=== PATIENT | female | born 1945 | race Caucasian/White ===

== ENCOUNTER 2018-02-07 08:54 | Outpatient (CLI) | payer MEDICARE, BC, SELFPAY ==
[2018-02-07 09:05] VITALS: BMI 21.1
[2018-02-07 09:38] LABS: Albumin Level 3.5 gm/dL (3.4-5.0); Creatinine Clearance Estimated 39 mL/min (0-300); Creatinine,Serum 0.69 mg/dL (0.55-1.02); Estimated Glomerular Filt Rate 83 ml/min (>60); GFR (African American) 100 ML/MIN (>60)
[2018-02-07 10:00] VITALS: BP 126/50; PULSE 69; RESP 18; TEMP 36.6
[2018-02-07 10:25] VITALS: BP 119/65; PULSE 66; RESP 18
== END 2018-02-07 10:25 | disposition home or self-care (01) ==
LOC: INF 08:57
PROVIDERS: PCP Family Medicine; Visit Provider Family Medicine
DX: M81.0 Age-related osteoporosis without current pathological fracture (principal)
CPT/HCPCS: 82040; 82310; 82565; J3489

== ENCOUNTER → 2018-11-16 12:51 | Outpatient (CLI) | payer MEDICARE, BC, SELFPAY ==
--- NOTE | 2018-11-16 12:55 | CT_ITS ---
CT lung screening EXAM: CT LUNG LOW DOSE WO CONTRAST HISTORY: 35 pack-year smoking history asymptomatic for lung cancer ITS.REASON: NICOTINE DEPENDENCE ORDERING PHYSICIAN: Des Carreno MD PATIENT AGE: 73 years COMPARISON: None TECHNIQUE: The exam was performed on a GE Light Speed [address] scanner using 2.90 mGy CTDI. A low dose helical CT CHEST was performed on a multi-detector scanner. All CT scans at the facility use one or more dose reduction, viz: automated exposure control, ma/kV adjustment per patient size (including targeted exams where dose is matched to indication, i.e. head), or iterative reconstruction technique. The LDCT was performed in a facility that meets the criteria for the screening program. Data regarding this exam was submitted to ACR which is an approved registry. The order for this exam indicates that it came as a result of a lung cancer screening counseling shard decision-making visit that included all the elements required of such a visit including smoking cessation. The radiologist interpreting this exam meets the CMS criteria for the LDCT lung cancer screening program. The exam is reported using the Lung-RADS classification scale and reported to the ACR registry. NOTE: This study was performed for the specific purposes of lung cancer screening and is not an alternative to diagnostic chest CT. RADIATION DOSE: CTDI vol(CT dose Index-volume) = 2.90mG DLP (Dose Length Product) = 100.81 mGcm FINDINGS: There is severe thoracic kyphosis with increased AP dimension of the chest moderate-sized hiatal hernia. Changes of COPD with scattered fibrotic areas. Scattered parenchymal opacities are present including a 14 mm density within the lingula which may be due to an area of scarring, noncalcified 6 mm nodule in the right lung base in the CP angle medially, scattered parenchymal opacities in the left lower lobe infiltrate due to atelectasis or scarring.. There is a 3.5 x 1.3 cm parenchymal opacity in the left lower lobe medially which may be due to an area of scarring is well. IMPRESSION: 1. Lung RADS Category: 4, mildly suspicious regarding scattered parenchymal opacities which may only be due to parenchymal scarring. No previous exams available for comparison. 2. Other findings: COPD, severe kyphosis, hiatal hernia RECOMMENDATIONS: [address] without and with contrast
== END ==
PROVIDERS: PCP Family Medicine; Visit Provider Family Medicine
DX: Z12.2 Encounter for screening for malignant neoplasm of respiratory organs (principal); Z87.891 Personal history of nicotine dependence

== ENCOUNTER 2019-02-12 09:15 | Outpatient (CLI) | payer MEDICARE, BC, SELFPAY ==
[2019-02-12 09:17] VITALS: BMI 21.3
[2019-02-12 09:42] LABS: Basophils # 0.1 K/mm3 (0-0.2); Basophils % 1.2 % (0.1-2.0); Eosinophils # 0.1 K/mm3 (0.0-0.4); Eosinophils % 2.1 % (0.1-12.0); Hematocrit 44.7 % (37.0-47.0); Hemoglobin 14.1 g/dL (12.2-16.2); Lymphocytes # 2.6 K/mm3 (0.7-4.5); Lymphocytes % 47.3 % (10-50); Mean Corpuscular HGB Conc 31.6 g/dL (31.8-35.4); Mean Corpuscular Hemoglobin 28.5 pg (27.0-31.2); Mean Corpuscular Volume 90.3 fl (81-99); Mean Platelet Volume 8.7 fl (7.4-10.4); Monocytes # 0.3 K/mm3 (0.1-1.0); Monocytes % 5.1 % (1.7-9.3); Neutrophils # 2.4 K/mm3 (1.8-7.8); Neutrophils % 44.3 % (37.0-80.0); Platelet Count 445 K/mm3 (142-424); Red Blood Count 4.95 M/mm3 (4.20-5.40); Red Cell Distribution Width 13.5 % (11.5-17.5); White Blood Count 5.4 K/mm3 (4.8-10.8)
[2019-02-12 09:51] LABS: Alanine Aminotransferase 18 U/L (12-78); Albumin Level 3.6 gm/dL (3.4-5.0); Albumin/Globulin Ratio 0.9 (1.1-1.8); Alkaline Phosphatase 69 U/L (46-116); Anion Gap 11.1 mEq/L (5-15); Aspartate Amino Transferase 13 U/L (15-37); Bilirubin,Total 0.4 mg/dL (0.2-1.0); Blood Urea Nitrogen 13 mg/dL (7-18); Calcium 9.3 mg/dL (8.5-10.1); Carbon Dioxide 30 mmol/L (21.0-32.0); Chloride 102 mmol/L (98-107); Chol/HDL Ratio 2.5 (1-3.5); Cholesterol 232 mg/dL (140-200); Creatinine Clearance Estimated 39 mL/min (50-200); Creatinine,Serum 0.86 mg/dL (0.55-1.02); Estimated Glomerular Filt Rate 64 ml/min (>60); GFR (African American) 78 ML/MIN (>60); Globulin 4.1 gm/dl (1.3-3.2); Glucose 96 mg/dL (74-106); HDL Cholesterol 94 mg/dL (29-89); Iron 84 ug/dl (28-170); LDL Cholesterol 123 mg/dL (0-130); Potassium 4.1 mmoL/L (3.5-5.1); Sodium 139 mmol/L (136-145); Total Protein,Serum 7.7 gm/dL (6.4-8.2); Triglycerides 77 mg/dL (30-200); VLDL Cholesterol 15 mg/dL (0-40)
[2019-02-12 10:56] VITALS: BP 144/71; PULSE 65; RESP 18; O2SAT 99
[2019-02-13 17:51] LABS: Vitamin D 25 Hydroxy 20.4 ng/mL (30.0-100.0)
== END 2019-02-12 10:56 | disposition home or self-care (01) ==
LOC: INF 09:17
PROVIDERS: Visit Provider Family Medicine
DX: D50.9 Iron deficiency anemia, unspecified (principal); E78.5 Hyperlipidemia, unspecified; M81.0 Age-related osteoporosis without current pathological fracture; E55.9 Vitamin D deficiency, unspecified; I10 Essential (primary) hypertension
CPT/HCPCS: 80053; 80061; 82652; 83540; 85025; 96374; J3489

== ENCOUNTER → 2019-04-02 10:19 | Outpatient (CLI) | payer MEDICARE, BC, SELFPAY ==
--- NOTE | 2019-04-02 10:59 | CT_ITS ---
PROCEDURE: CT CHEST WO/W CON CLINCAL INDICATION: ABNORMAL CT Tobacco use, history of smoking, COPD COMPARISON: [employer] CT lung screening from 11/16/2018 TECHNIQUE: IV Contrast: 75ml Optiray 350 Axial images obtained with sagittal and coronal reformats. All CT scans at the facility use one or more dose reduction, viz: automated exposure control, ma/kV adjustment per patient size (including targeted exams where dose is matched to indication, i.e. head), or iterative reconstruction technique. FINDINGS: There is severe kyphosis with hyperinflation with significant increased AP dimension of the chest. No mediastinal or hilar mass is evident. There is a moderate-sized hiatal hernia. There are scattered parenchymal and subpleural nodular opacities as previously described. Patchy area of infiltrate is present in the left upper lobe anteriorly not readily apparent on the previous study. There is mild diffuse bronchial thickening. Pulmonary fibrotic changes are present in the lung bases left more extensive than right with bronchiectasis in the left lower lobe.. There remains irregular opacification in the left lung base and may be related to scarring. This is not significantly changed. Neoplasm is not totally excluded. There is some volume loss in the left lower lobe is well. There is some increased septal thickening in the left lower lobe anteriorly compared to the previous exam. IMPRESSION: 1. Severe COPD with pulmonary fibrotic changes and scattered areas of scarring. Numerous sub pleural and parenchymal opacities are not significantly changed suggesting inflammatory/infectious etiology 2. There is some increase in septal thickening in the left lung base anteriorly with a patchy area of infiltrate in the left upper lobe 3. Scattered areas of irregular parenchymal opacification in the left lung base similar to the previous exam and may be related to postinflammatory/fibrotic change. Neoplasm is not completely excluded. Follow-up is suggested. Honeycombing is present in the left lung base with some increase in septal thickening in the left lower lobe anteriorly. Dictated by: Julian Ortega MD 04/03/2019 07:13 Signed by: <Electronically signed by Julian Ortega MD in [place]> 04/03/2019 07:13
[2019-04-02 11:07] LABS: Blood Urea Nitrogen 8 mg/dL (7-18); Creatinine,Serum 0.71 mg/dL (0.55-1.02); Estimated Glomerular Filt Rate 80 ml/min (>60); GFR (African American) 97 ML/MIN (>60)
== END ==
PROVIDERS: PCP Family Medicine; Visit Provider Family Medicine
DX: I10 Essential (primary) hypertension (principal); R91.8 Other nonspecific abnormal finding of lung field
CPT/HCPCS: 36415; 71270; 82565; 84520; Q9967

== ENCOUNTER → 2022-10-17 13:48 | Outpatient (CLI) | payer MEDICARE, BC, SELFPAY ==
--- NOTE | 2022-10-17 13:55 | XR_ITS ---
FINAL REPORT CLINICAL HISTORY: COPD FINDINGS: Two views of the chest were obtained. The heart size and pulmonary vascularity are within normal limits. The mediastinum is normal. There are mild bibasilar opacities which may represent atelectasis or scarring. There is no pneumothorax. There is diffuse thoracic kyphosis. IMPRESSION: Mild bibasilar opacities may represent atelectasis or scarring. Reviewed, Interpreted and Dictated by Vince Myers III, MD Transcribed by Nasima Mroris Authenticated and [facility]
== END ==
PROVIDERS: PCP Family Medicine; Visit Provider Family Medicine
DX: J44.1 Chronic obstructive pulmonary disease with (acute) exacerbation (principal)
CPT/HCPCS: 71046

== ENCOUNTER → 2022-10-25 23:00 | Outpatient (CLI) | payer MEDICARE, BC, SELFPAY ==
[2022-10-25 18:32] LABS: Basophils # 0.1 K/mm3 (0-0.2); Basophils % 1.2 % (0.1-2.0); Eosinophils # 0.2 K/mm3 (0.0-0.4); Eosinophils % 2.1 % (0.1-12.0); Hematocrit 39.6 % (37.0-47.0); Hemoglobin 11.8 g/dL (12.2-16.2); Lymphocytes # 2.6 K/mm3 (0.7-4.5); Lymphocytes % 31.8 % (10-50); Mean Corpuscular HGB Conc 29.9 g/dL (31.8-35.4); Mean Corpuscular Hemoglobin 24.9 pg (27.0-31.2); Mean Corpuscular Volume 83.3 fl (81-99); Mean Platelet Volume 8.3 fl (7.4-10.4); Monocytes # 0.5 K/mm3 (0.1-1.0); Monocytes % 6.5 % (1.7-9.3); Neutrophils # 4.7 K/mm3 (1.8-7.8); Neutrophils % 58.4 % (37.0-80.0); Platelet Count 510 K/mm3 (142-424); Red Blood Count 4.75 M/mm3 (4.20-5.40); Red Cell Distribution Width 15.7 % (11.5-17.5); White Blood Count 8.1 K/mm3 (4.8-10.8)
[2022-10-25 18:39] LABS: Alanine Aminotransferase 12 U/L (12-78); Albumin Level 3.8 g/dl (3.5-5.0); Albumin/Globulin Ratio 1.4 (1.1-1.8); Alkaline Phosphatase 68 U/L (38-126); Anion Gap 5.7 mEq/L (5-15); Aspartate Amino Transferase 23 U/L (14-36); Bilirubin,Total 0.4 mg/dl (0.2-1.3); Blood Urea Nitrogen 15 mg/dl (7-17); Carbon Dioxide 32 mmol/L (22.0-30.0); Chloride 100 mmol/L (98-107); Estimated Glomerular Filt Rate 81 ml/min (>60); GFR (African American) 98 ML/MIN (>60); Globulin 2.7 g/dL (1.3-3.2); Glucose 76 mg/dl (74-100); Potassium 4.7 mmoL/L (3.5-5.1); Sodium 133 mmol/L (136-145); Total Protein,Serum 6.5 g/dl (6.3-8.2)
[2022-10-25 19:11] LABS: Thyroid Stimulating Hormone 0.98 uIU/mL (0.465-4.68)
[2022-10-25 19:30] LABS: Vitamin B12 812 pg/mL (239-931)
== END ==
PROVIDERS: PCP Family Medicine; Visit Provider Family Medicine
DX: R93.89 Abnormal findings on diagnostic imaging of other specified body structures (principal); J44.1 Chronic obstructive pulmonary disease with (acute) exacerbation
CPT/HCPCS: 80053; 82607; 84443; 85025

== ENCOUNTER → 2023-03-21 23:23 | Outpatient (CLI) | payer MEDICARE, BC, SELFPAY ==
[2023-03-21 20:00] LABS: Anion Gap 13.9 mEq/L (5-15); Blood Urea Nitrogen 21 mg/dl (7-17); Calcium 9.5 mg/dl (8.4-10.2); Carbon Dioxide 29 mmol/L (22.0-30.0); Chloride 103 mmol/L (98-107); Estimated Glomerular Filt Rate 43 ml/min (>60); GFR (African American) 52 ML/MIN (>60); Glucose 72 mg/dl (74-100); Potassium 4.9 mmoL/L (3.5-5.1); Sodium 141 mmol/L (136-145)
== END ==
PROVIDERS: PCP Family Medicine; Visit Provider Family Medicine
DX: E87.1 Hypo-osmolality and hyponatremia (principal); J43.9 Emphysema, unspecified
CPT/HCPCS: 80048

== ENCOUNTER 2024-02-19 16:20 | Outpatient (CLI) | payer MEDICARE, BC, SELFPAY ==
--- NOTE | 2024-02-19 16:26 | XR_ITS ---
PROCEDURE INFORMATION: Exam: XR Chest Exam date and time: 02/19/2024 4:30 PM Age: 79 years old Clinical indication: Cough and shortness of breath and other: Copd; Additional info: Cough, copd TECHNIQUE: Imaging protocol: Radiologic exam of the chest. Views: 2 views. COMPARISON: CR XR CHEST 2V 10/17/2022 2:03 PM FINDINGS: Lungs: Lungs are hyperinflated and have bibasilar scarring that is unchanged. No acute airspace consolidation or nodules. Pleural spaces: No pleural effusion. No pneumothorax. Heart/Mediastinum: No abnormalities. No cardiomegaly. No pulmonary vascular congestion. Bones/joints: Hyperkyphosis at pectus carinatum the. Mild compression fractures of T11 and L1 are unchanged. IMPRESSION: 1. No acute findings in the chest. No deleterious interval changes. 2. Hyperinflation. 3. Pectus carinatum and hyperkyphosis.
== END 2024-02-19 23:59 | disposition home or self-care (01) ==
LOC: RAD 16:22
PROVIDERS: PCP Family Medicine; Visit Provider Family Medicine
DX: J44.9 Chronic obstructive pulmonary disease, unspecified (principal); R05.9 Cough, unspecified; Z72.0 Tobacco use
CPT/HCPCS: 71046

== ENCOUNTER 2024-04-16 12:37 | Outpatient (CLI) | payer MEDICARE, BC, SELFPAY ==
--- NOTE | 2024-04-16 12:38 | CT_ITS ---
FINAL REPORT CLINICAL HISTORY: COPD, hx abnormal chest CT, cough COMPARISON: 04/02/2019 FINDINGS: Axial CT images of the chest were obtained with contrast. Coronal reformatted images were also obtained. This study was performed with techniques to keep radiation doses as low as reasonably achievable, (ALARA). Individualized dose reduction techniques using automated exposure control or adjustment of mA and/or KV according to the patient's size were employed. Motion obscures the lung bases. There is a stable 6 mm left thyroid lobe nodule and a stable 19 mm right thyroid lobe nodule. A large hiatal hernia is stable. There is no evidence of mediastinal or hilar mass or adenopathy.No axillary mass or adenopathy is identified. On lung window images, no pulmonary mass or dominant pulmonary nodule is identified. Mild pulmonary ground-glass opacities are consistent with edema or alveolitis. There is left lower lobe bronchiectasis and mucous plugging. Multifocal opacities are noted in the right middle lobe. Lingula, and both lower lobes favored to represent scarring. The overall appearance is similar to the prior study. Severe thoracic kyphosis is noted. Limited images of the upper abdomen reveal a small left renal cyst. There is a 3 mm nonobstructing left renal stone. IMPRESSION: Left lower lobe bronchiectasis and mucous plugging. Multifocal opacities favored to represent scarring as described are stable from prior. Findings consistent with edema or alveolitis. 3 mm nonobstructing left renal stone. Stable bilateral thyroid nodules. Reviewed, Interpreted and Dictated by Vince Myers III, MD Transcribed by Myra Can Authenticated and [facility]
[2024-04-16 13:34] LABS: Blood Urea Nitrogen 17 mg/dl (7-17); Estimated Glomerular Filt Rate 80 ml/min (>60); GFR (African American) 97 ML/MIN (>60)
[2024-04-16] MEDS: IOPAMIDOL-370 (76%);100ML BOTTLE 75 ML IV (14:16)
[2024-04-16] MEDS: SODIUM CHLORIDE 0.9% 10ML SYR (RAD ONLY) 10 ML IV (14:16)
== END 2024-04-16 23:59 | disposition home or self-care (01) ==
LOC: RAD 12:37
PROVIDERS: PCP Nurse Practitioner; Visit Provider Nurse Practitioner
DX: J44.1 Chronic obstructive pulmonary disease with (acute) exacerbation (principal); R93.89 Abnormal findings on diagnostic imaging of other specified body structures; R05.9 Cough, unspecified; R53.83 Other fatigue
CPT/HCPCS: 36415; 71260; 82565; 84520; Q9967

== ENCOUNTER 2024-09-18 12:14 | Outpatient (CLI) | payer MEDICARE, BC, SELFPAY ==
--- NOTE | 2024-09-18 13:22 | PC.NURSE ---
Pt present for PFT and 6 Minute Walk Test. 6 Minute Walk Test completed without incident. PFT attempted Pt unable to understand and not able to follow directions in order to complete breathing maneuvers.
== END 2024-09-18 23:59 | disposition home or self-care (01) ==
LOC: RT 12:17
PROVIDERS: PCP Nurse Practitioner; Visit Provider Internal Medicine Pulmonary Disease
DX: R06.09 Other forms of dyspnea (principal); J47.9 Bronchiectasis, uncomplicated; J15.69 Pneumonia due to other Gram-negative bacteria; B96.89 Other specified bacterial agents as the cause of diseases classified elsewhere
CPT/HCPCS: 87070; 87077; 87186; 87205; 94618

== ENCOUNTER 2024-11-06 15:55 | Inpatient (IN) | payer MEDICARE, BC, SELFPAY ==
[2024-11-06] VITALS (10 sets, daily range): BP systolic 104–178; BP diastolic 66–95; PULSE 74–96; RESP 18–75; TEMP 36.6–36.9; O2SAT 86–100; BMI 19.7; BMI 20.1
--- NOTE | 2024-11-06 15:54 | ED_ITS ---
<Statement entered by Hudson Mera MD - 11/06/24 21:52> I was consulted by the IDALIA, and we discussed the complexity of the problems being addressed. I approved the treatment and management plan for this patient's care in the emergency department, thus performing a substantive portion of the medical decision making. Hudson Mera MD Discharge Plan Disposition Patient Disposition: Admitted Condition: Good Clinical Impressions Clinical Impression: Acute and chronic respiratory failure with hypoxia, Pelvic hematoma in female Fracture of multiple pubic rami Qualifiers: Encounter type: initial encounter Fracture type: closed Laterality: right Q ualified Code(s): S32.591A - Other specified fracture of right pubis, initial encounter for closed fracture Closed sacral fracture Qualifiers: Encounter type: initial encounter Zone of sacrum fracture: unspecified portion of sacrum Qualified Code(s): S32.10XA - Unspecified fracture of sacrum, initial encounter for closed fracture Discharge ED Provider: Hudson Mera General Adult HPI General Chief complaint: Fall Stated complaint: RIGHT HIP PAIN Time Seen by Provider: 11/06/24 16:00 History of Present Illness HPI narrative: Presents for evaluation of a fall. Patient was walking through her house tripped on a toolbox on her floor and fell on the right side of her body. She was unable to get up due to the pain. She did not lose consciousness. Patient also has a history of COPD not on chronic oxygen and reports that she is being treated for bronchitis currently. Patient denies chest pain shortness of breath fever chills hemoptysis hematochezia melena nausea vomit diarrhea. She denies headache change in level of consciousness or awareness focal neurologic deficits. Related Data Home Medications ?Medication ?Instructions ?Recorded ?Confirmed acetaminophen 325 mg tablet 650 mg PO NEEDED PRN pain 02/07/18 11/06/24 (Tylenol) cholecalciferol (vitamin D3) 75 25 mcg PO DAILY 06/27/24 11/06/24 mcg (3,000 unit) tablet aspirin 81 mg chewable tablet 81 mg PO DAILY 11/06/24 11/06/24 benazepril 5 mg tablet 2.5 mg PO DAILY 11/06/24 11/06/24 rabeprazole 20 mg tablet,delayed 20 mg PO DAILY 11/06/24 11/06/24 release Previous Rx's ?Medication ?Instructions ?Recorded diphenhydramine HCl 25 mg tablet 25 mg PO BID #180 tabs 09/12/24 (Benadryl Allergy) albuterol sulfate 90 mcg/actuation 2 inh inhalation Q4-6H PRN 09/17/24 aerosol inhaler (Ventolin HFA) Shortness Of Breath Or Wheezing #8.5 grams fluticasone propionate 50 1 spray intranasal DAILY allergies 09/17/24 mcg/actuation nasal #48 grams spray,suspension (Flonase Allergy Relief) glycopyrrolate 9 mcg-formoterol 2 puff inhalation BID 90 days 09/18/24 4.8 mcg HFA aerosol inhaler #10.7 grams (Bevespi Aerosphere) Allergies Allergy/AdvReac Type Severity Reaction Status Date / Time No Known Allergies Allergy Verified 09/18/24 13:58 [facility] Disclaimer: The information contained in this section may have been updated after the patient was seen, as this information can be updated by other users. Medical History Chronic cough Bronchiectasis Smoking greater than 30 pack years Mucus plug in respiratory tract Fatigue Cough Allergic rhinitis Encounter for immunization Renal insufficiency, mild Periorbital ecchymosis of left eye COPD (chronic obstructive pulmonary disease) with chronic bronchitis Emphysema of lung Hyponatremia Abnormal CT scan, chest COPD with exacerbation Heart attack History of cataract GERD (gastroesophageal reflux disease) Hypertension Surgical History History of cataract surgery History of tonsillectomy Family History Other Cancer Diabetes Heart attack Hypertension Stroke Social History (Updated 11/06/24 @ 20:17 by Luana Choudhury RN) Smoking Status: Current every day smoker alcohol intake: current current occupational status: retired Travel in the last 8 weeks: Inside the [place] Have you lived/traveled outside [place] in past 30 days?: No Contact w/someone who lives/traveled outside US past 30 days?: No Exposure to someone with infectious disease in past 14 days?: No Do you have a fever (greater than 100.4 F or 38 C)?: No Have you tested positive for COVID-19: No Exposed to someone with COVID-19 in past 14 days?: No Do you have a sore throat?: No Do you have a cough?: No Do you have any weakness?: No Do you have any diarrhea?: No Are you experiencing any unusual bleeding?: No Do you have any muscle aches/pain?: No Do you have any abdominal pain?: No Are you experiencing loss of taste or smell?: No Other Medical History Have you received the Pneumonia Vaccine: Yes ROS Obtained: Yes Systems reviewed as appropriate & no additional complaints except as documented Physical Exam General General appearance: alert and in no apparent distress Respiratory Respiratory exam: Present normal lung sounds bilaterally Cardiovascular Cardiovascular exam: Present regular rate Neurological Exam Neurological exam: Present alert and oriented X3 Medical Decision Making Medical Records Medical records reviewed: Yes I reviewed the patient's medical records. Screening: Per USPSTF and CDC recommendations, given the prevalence of disease in our region, it is our hospital?s policy to screen for HIV and viral Hepatitis for all patients aged 18 and over and those with ongoing risk factors. Benny Inquiry Pt receiving controlled substance: No Vital Signs: 11/06/24 16:02 11/06/24 16:06 11/06/24 16:38 Temperature 98.5 F Temperature Source Oral Pulse Rate 74 Pulse Rate [Left Radial] 82 Respiratory Rate 18 18 21 Blood Pressure 104/83 L 118/68 Blood Pressure [Right Arm] 104/83 L Blood Pressure Mean [Right Arm] 90 02 Sat by Pulse Oximetry 95 86 L 96 Oxygen Delivery Method Nasal Cannula Room Air Nasal Cannula Oxygen Flow Rate (LPM) 11/06/24 17:01 11/06/24 17:30 11/06/24 18:00 Temperature Temperature Source Pulse Rate 81 76 86 Pulse Rate [Left Radial] Respiratory Rate 19 39 H 32 H Blood Pressure 178/87 H 177/95 H 176/88 H Blood Pressure [Right Arm] Blood Pressure Mean [Right Arm] 02 Sat by Pulse Oximetry 95 93 L 100 Oxygen Delivery Method Nasal Cannula Nasal Cannula Nasal Cannula Oxygen Flow Rate (LPM) 11/06/24 18:01 11/06/24 19:00 Temperature 98.5 F Temperature Source Pulse Rate 80 96 H Pulse Rate [Left Radial] Respiratory Rate 24 21 Blood Pressure 170/80 H 146/70 H Blood Pressure [Right Arm] Blood Pressure Mean [Right Arm] 02 Sat by Pulse Oximetry 94 L Oxygen Delivery Method Nasal Cannula Oxygen Flow Rate (LPM) 2 Lab Data Lab results reviewed: Yes I reviewed the patient's lab results. Lab Results 11/06/24 16:00: SARS-CoV-2 (PCR) Not detected, Influenza A Untype (PCR) Not detected, Influenza Type B (PCR) Not detected 11/06/24 16:08: WBC 15.9 H, RBC 4.32, Hgb 11.9 L, Hct 37.6, MCV 87.0, MCH 27.5, MCHC 31.6 L, RDW 15.6, Plt Count 336, MPV 10.1, Neut % (Auto) 80.9 H, Lymph % (Auto) 12.8, [place] % (Auto) 4.3, Eos % (Auto) 0.7, Baso % (Auto) 0.5, Neut # (Auto) 12.9 H, Lymph # (Auto) 2.0, [place] # (Auto) 0.7, Eos # (Auto) 0.1, Baso # (Auto) 0.1, Total Counted 100, Neutrophils % (Manual) 79 H, Lymphocytes % (Manual) 14, Monocytes % (Manual) 7, Platelet Estimate Normal, RBC Morphology Normal, Sodium 140, Potassium 3.8, Chloride 105, Carbon Dioxide 31 H, Anion Gap 7.8, BUN 18 H, Creatinine 0.80, Estimated Creat Clear 34, Estimated GFR 69, Est GFR ( Amer) 83, Glucose 95, Calcium 9.4, Total Bilirubin 0.4, AST 32, ALT 20, Alkaline Phosphatase 83, Total Protein 6.8, Albumin 3.9, Globulin 2.9, Albumin/Globulin Ratio 1.3 11/06/24 16:50: VBG pH 7.33, VBG pCO2 54.1 H, VBG pO2 39.1, VBG HCO3 27.6, VBG Total CO2 29.3 H, VBG O2 Saturation 71.0 H, VBG Base Excess 1.6, VBG Lactic Acid 1.1 11/06/24 16:08 11/06/24 16:08 Orders (Tests/Meds): ED MEDICATIONS Generic Name Dose Route Start Last Admin Trade Name Freq PRN Reason Stop Dose Admin Acetaminophen 650 mg 11/06/24 19:20 Acetaminophen 325mg Tab PO 12/06/24 19:19 Q4HP PRN Fever or Mild Pain (1-3) Hydrocodone Bitart/Acetaminophen 1 tab 11/06/24 19:20 Hydrocodone/Apap 5/325 Mg Tablet PO 12/06/24 19:19 Q4HP PRN Mild to Moderate Pain (1-6) Albuterol/Ipratropium 3 ml 11/06/24 20:23 Ipratropium/Albuterol 3 Ml Neb 12/06/24 20:22 Q6HP PRN Shortness Of Breath Enoxaparin Sodium 40 mg 11/07/24 09:00 Enoxaparin 40mg/0.4ml Syringe SUBCUT 12/07/24 08:59 DAILY TY Morphine Sulfate 2 mg 11/06/24 19:20 Morphine 2mg/Ml Syringe IV 12/06/24 19:19 Q2HP PRN Severe Pain (7-10) Ondansetron HCl 4 mg 11/06/24 19:20 Ondansetron 4mg/2ml Vial IV 12/06/24 19:19 Q8HP PRN Nausea Discontinued Medications Generic Name Dose Route Start Last Admin Trade Name Freq PRN Reason Stop Dose Admin Acetaminophen 1,000 mg 11/06/24 16:00 11/06/24 16:31 Acetaminophen 500mg Tab PO 11/06/24 16:01 1,000 mg ONCE ONE Administration Albuterol/Ipratropium 9 ml 11/06/24 17:09 11/06/24 17:22 Ipratropium/Albuterol 3 Ml [facility] 11/06/24 17:10 9 ml ONCE ONE Administration Doxycycline Hyclate 100 mg 11/06/24 17:10 11/06/24 17:22 Doxycycline Hycl 100 Mg Tablet PO 11/06/24 17:11 100 mg ONCE ONE Administration Iopamidol 80 ml 11/06/24 18:15 11/06/24 18:17 Iopamidol-370 (76%);100ml Bottle IV 11/06/24 18:16 80 ml ONCE ONE Administration Methylprednisolone Sodium Succinate 125 mg 11/06/24 17:04 11/06/24 17:22 Methylprednisolone Sod Succ 125mg Vial IV 11/06/24 17:05 125 mg ONCE ONE Administration Sodium Chloride 3 ml 11/06/24 16:50 11/06/24 20:56 Sodium Chloride 3% 15ml [facility] 12/06/24 16:49 3 ml ONCE PRN Administration [employer] Sodium Chloride 50 ml 11/06/24 18:15 11/06/24 18:16 0.9 % Sodium Chloride 50 Ml Vial IV 11/06/24 18:16 50 ml ONCE ONE Administration Sodium Chloride 10 ml 11/06/24 18:15 11/06/24 18:16 Sodium Chloride 0.9% 10ml Syr (Rad Only) IV 11/06/24 18:16 10 ml ONCE ONE Administration ORDERS Category Date Time Status CT bony pelvis Stat Cat Scan 11/06/24 16:[address] cervical spine wo con Stat Cat Scan 11/06/24 16:[address] head/brain wo con Stat Cat Scan 11/06/24 16:[address] lumbar spine wo con Stat Cat Scan 11/06/24 16:[address] thoracic spine wo con Stat Cat Scan 11/06/24 16:01 Completed CXR --portable [XR chest portable] Stat Exams 11/06/24 16:15 Completed Femur XR right 2 views [XR femur RT 2V] Stat Exams 11/06/24 16:00 Completed Knee XR right 3 views [XR knee RT 3V] Stat Exams 11/06/24 16:00 Completed CBC w/Auto Diff [Complete Blood Count Auto Diff] Stat Lab 11/06/24 16:08 Completed CMP [Comprehensive Metabolic Panel] Stat Lab 11/06/24 16:08 Completed Rapid PCR Covid and Flu A/B Stat Lab 11/06/24 16:00 Completed Sputum Culture & Gram Stain Stat Micro 11/06/24 16:50 Ordered VBG [Venous Blood Gas] Stat RT 11/06/24 16:50 Completed Medical Decision Narrative: In summary patient is a 79-year-old female who presents to the emergency department for evaluation of a fall. Patient is initially slightly hypotensive with a blood pressure of 104/83 heart rate 74 breathing 18 times a minute satting at 83% on room air upon arrival, afebrile at 98.5. Physical exam is remarkable for an actual wet sounding cough however it is nonproductive, breath sounds are actually clear to the bases without adventitious sounds accessory muscle use or increased work of breathing although patient is tachypneic, patient has no dorsal spine tenderness has normal pupils that were equal round reactive to light, [place] Coma Score 15, and is awake alert and oriented person place and circumstance. There is no dorsal spine tenderness no evidence of contusions abrasions deformities ecchymosis, abdomen soft nontender no rebound no guarding no rigidity normal bowel sounds. Patient has full range of motion in all 4 extremities and is neurovascular intact distally in all 4. Patient has pain to palpation over the right hip and inguinal area without evidence again of ecchymosis or palpable bony deformity. Patient is neurovascularly intact distally in the affected extremity.. Differential diagnosis includes contusion versus fracture, acute hypoxemic respiratory failure versus COPD exacerbation versus pneumonia etc. Initial workup will be conducted with CT trauma scans plain film chest x-ray hematologic labs. Initial interventions include supplemental O2 and continuous pulse oximetry to maintain oxygen saturation above 94%, Tylenol Toradol oxycodone DuoNeb and Decadron. Initial workup reviewed by me shows that the patient has a white count of 15,900 normal H&H with an absolute neutrophil count of 12.9, VBG shows a pH 7.33 pCO2 of 54.1, COVID and flu are negative. My informal interpretation of her CT trauma imaging shows a comminuted inferior and superior right pubic rami fracture, a nondisplaced right sacral fracture, no contrast extravasation indicating active hemorrhage for the pubic rami fracture and pelvic hematoma, no evidence of active infiltrate or thrombus in the CTA or other acute processes prior to radiology read. Please see final report for official interpretation. I then dug deeper into the patient's chart and saw the note from Dr. Berrios and at his last visit he had recommended supplemental O2 1 patient was up and awake given known bronchiectasis, COPD along with ongoing tobaccoism as well as continued disease modifying inhalers and home nebulizers. According to the patient that never took place and she does not currently have arrangements for home O2. Despite initial interventions patient cannot be weaned off of oxygen currently thus I had an interactive discussion with both Dr. Burnham of orthopedics regarding management of her fractures which will be nonoperative weightbearing as tolerated with a walker after PT OT evaluate for home safety, and I had interactive discussion with hospital medicine regarding patient DUTTA findings and management and she will be admitted for further evaluation and care. Documenting what the monitoring coordinator shows with rate and rhythm Critical Care Critical Care Time Critical Care Time: Yes Attestation: On 11/06/24, the high probability of a clinically significant, sudden or life threatening deterioration of the following system(s) required my full and direct attention, intervention and personal management. The time I documented below is in addition to time spent performing reported procedures but includes the following listed in this critical care notation. Total Time Total Critical Care Time: 35
--- NOTE | 2024-11-06 16:00 | XR_ITS ---
PROCEDURE INFORMATION: Exam: XR Right Knee Exam date and time: 11/06/2024 4:29 PM Age: 79 years old Clinical indication: Injury or trauma; Fall; Blunt trauma; Knee; Right; Additional info: Fall right hip pain TECHNIQUE: Imaging protocol: Radiologic exam of the right knee. Views: 3 views. COMPARISON: CR XR KNEE RT 3V 11/06/2024 4:29 PM FINDINGS: Bones/joints: Osteopenia. No acute fracture or dislocation. Soft tissues: Normal. Vasculature: Vascular calcification. IMPRESSION: No acute osseous abnormality.
--- NOTE | 2024-11-06 16:00 | XR_ITS ---
PROCEDURE INFORMATION: Exam: XR Right Femur Exam date and time: 11/06/2024 4:29 PM Age: 79 years old Clinical indication: Injury or trauma; Fall; Blunt trauma; Thigh or upper leg; Right; Additional info: Fall right hip pain TECHNIQUE: Imaging protocol: Radiologic exam of the right femur. Views: 2 views. COMPARISON: CT BONY PELVIS 11/06/2024 4:26 PM FINDINGS: Bones/joints: Osteopenia. Degenerative change. There are right-sided pubic rami fractures. Right femur appears intact. No dislocation. Soft tissues: Unremarkable. Vasculature: Vascular calcification. IMPRESSION: 1. Intact right femur. 2. Right-sided pubic rami fractures.
--- NOTE | 2024-11-06 16:01 | CT_ITS ---
PROCEDURE INFORMATION: Exam: CT Cervical Spine Without Contrast Exam date and time: 11/06/2024 4:19 PM Age: 79 years old Clinical indication: Injury or trauma; Fall; Additional info: Fall, direct fall on tile floor right hip TECHNIQUE: Imaging protocol: Computed tomography of the cervical spine without contrast. Radiation optimization: All CT scans at this facility use at least one of these dose optimization techniques: automated exposure control; mA and/or kV adjustment per patient size (includes targeted exams where dose is matched to clinical indication); or iterative reconstruction. COMPARISON: 1. CT HEAD/BRAIN WO CON 11/06/2024 4:[address] CHEST W CON 04/16/2024 1:[address] CHEST WO/W CON 04/02/2019 11:22 AM FINDINGS: Bones: The spine demonstrates moderate degenerative changes at multiple levels.There is no evidence of fracture. Lungs: A pleural-based 5 mm ground-glass opacity is seen at the periphery of the right upper lobe on axial image 67. It could be larger than this dimension as it is seen on the last available slice. A similar ground-glass opacity is seen on axial image 61 measuring 4 mm at the right upper lobe pleural surface. These lesions appear to be present on the comparison chest CT studies. Thyroid: Multinodular thyroid nodules are observed measuring up to 17 mm on the right where a rim of calcification is noted. Ultrasound follow-up is recommended. Vasculature: The vasculature demonstrates diffuse moderate atherosclerotic calcification. Soft tissues: Unremarkable. IMPRESSION: 1. A pleural-based 5 mm ground-glass opacity is seen at the periphery of the right upper lobe on axial image 67. It could be larger than this dimension as it is seen on the last available slice. A similar ground-glass opacity is seen on axial image 61 measuring 4 mm at the right upper lobe pleural surface. These lesions appear to be present on the comparison chest CT studies. 2. Multinodular thyroid nodules are observed measuring up to 17 mm on the right where a rim of calcification is noted. Ultrasound follow-up is recommended. 3. The spine demonstrates moderate degenerative changes at multiple levels.There is no evidence of fracture. COMMENTS: Consistent with the [employer]'s Incidental Findings Committee white paper (J Am Macarena Radiol 2015): In patients aged 35 years and older with an incidental thyroid nodule equal to or greater than 1.[address], MRI or extrathyroidal US, further evaluation with dedicated thyroid US is recommended for patients with normal life expectancy and without comorbidities. For smaller nodules without suspicious features, no further evaluation or follow up is recommended.
--- NOTE | 2024-11-06 16:01 | CT_ITS ---
PROCEDURE INFORMATION: Exam: CT Pelvis Without Contrast, Skeleton Exam date and time: 11/06/2024 4:26 PM Age: 79 years old Clinical indication: Injury or trauma; Fall; Blunt trauma (contusions or hematomas); Right; Hip; Additional info: Trauma, critical injury suspected TECHNIQUE: Imaging protocol: Computed tomography of the pelvis without contrast. Exam focused on the skeleton. Radiation optimization: All CT scans at this facility use at least one of these dose optimization techniques: automated exposure control; mA and/or kV adjustment per patient size (includes targeted exams where dose is matched to clinical indication); or iterative reconstruction. COMPARISON: CT BONY PELVIS 11/06/2024 4:26 PM FINDINGS: Intestine: Diverticulosis. Vasculature: Vascular calcification. Reproductive: Atrophic uterus. Bones/joints: Displaced and comminuted fractures involving the right superior and inferior pubic rami. Chronic fracture of the left inferior pubic ramus. Nondisplaced right sacral fracture. No dislocation. There is hemorrhage on the right adjacent to fractures. Soft tissues: Unremarkable. IMPRESSION: 1. Displaced and comminuted fractures involving the right superior and inferior pubic rami. 2. Nondisplaced right sacral fracture. 3. Soft tissue injury/hemorrhage adjacent to right-sided pubic rami fractures.
--- NOTE | 2024-11-06 16:01 | CT_ITS ---
PROCEDURE INFORMATION: Exam: CT Thoracic Spine Without Contrast Exam date and time: 11/06/2024 4:19 PM Age: 79 years old Clinical indication: Injury or trauma; Fall; Blunt trauma (contusions or hematomas); Additional info: Follow-up TECHNIQUE: Imaging protocol: Computed tomography of the thoracic spine without contrast. Radiation optimization: All CT scans at this facility use at least one of these dose optimization techniques: automated exposure control; mA and/or kV adjustment per patient size (includes targeted exams where dose is matched to clinical indication); or iterative reconstruction. COMPARISON: CT CHEST W CON 04/16/2024 1:53 PM FINDINGS: Bones/joints: There is dextroconvex curvature. Chronic loss of superior endplate height at T11. Remainder demonstrates preserved height and AP alignment. Mild to moderate prevertebral osteophytosis. Bilateral facet joint degenerative change. No acute thoracic spine fracture. No osseous destruction. No definite high-grade central canal stenosis within limitations of technique. Soft tissues: Unremarkable. Vasculature: Vascular calcification. Lungs: Left basilar infiltrate. Pulmonary emphysema. Chronic interstitial lung disease. Pleural spaces: No visible pneumothorax. Other findings: Large hiatal hernia. IMPRESSION: No acute thoracic spine fracture.
--- NOTE | 2024-11-06 16:01 | CT_ITS ---
PROCEDURE INFORMATION: Exam: CT Lumbar Spine Without Contrast Exam date and time: 11/06/2024 4:19 PM Age: 79 years old Clinical indication: Injury or trauma; Fall; Blunt trauma (contusions or hematomas) TECHNIQUE: Imaging protocol: Computed tomography of the lumbar spine without contrast. Radiation optimization: All CT scans at this facility use at least one of these dose optimization techniques: automated exposure control; mA and/or kV adjustment per patient size (includes targeted exams where dose is matched to clinical indication); or iterative reconstruction. COMPARISON: CT THORACIC SPINE WO CON 11/06/2024 4:19 PM FINDINGS: Bones/joints: Mild levoconvex curvature. Grade 1 anterolisthesis of L4 on L5. Chronic loss of superior endplate height at L1. Remainder demonstrates preserved height and AP alignment. Bilateral L5 spondylolysis. Mild prevertebral osteophytosis. Bilateral facet joint degenerative change. No acute lumbar spine fracture. Central canal stenosis greatest at L4-L5, likely moderate to severe. Nondisplaced right sacral fracture. Kidneys and ureters: Mild left nephrolithiasis. Vasculature: Vascular calcification. Soft tissues: Unremarkable. IMPRESSION: 1. No acute lumbar spine fracture. 2. Nondisplaced right sacral fracture.
--- NOTE | 2024-11-06 16:01 | CT_ITS ---
PROCEDURE INFORMATION: Exam: CT Head Without Contrast Exam date and time: 11/06/2024 4:16 PM Age: 79 years old Clinical indication: Injury or trauma; Fall; Additional info: Fall. Direct fall on tile floor right hip TECHNIQUE: Imaging protocol: Computed tomography of the head without contrast. Radiation optimization: All CT scans at this facility use at least one of these dose optimization techniques: automated exposure control; mA and/or kV adjustment per patient size (includes targeted exams where dose is matched to clinical indication); or iterative reconstruction. COMPARISON: No relevant prior studies available. FINDINGS: Brain: There is moderate atrophy and very extensive symmetric chronic white matter microangiopathic changes. MRI follow-up is recommended for more complete assessment. Cerebral ventricles: There is compensatory ventricular dilation. Paranasal sinuses: Visualized sinuses are unremarkable. No fluid levels. Mastoid air cells: Visualized mastoid air cells are well aerated. Bones: Unremarkable. No acute fracture. Soft tissues: Unremarkable. Vasculature: The vasculature demonstrates diffuse moderate atherosclerotic calcification. IMPRESSION: 1. There is moderate atrophy and very extensive symmetric chronic white matter microangiopathic changes. MRI follow-up is recommended for more complete assessment. 2. No acute intracranial process is identified.
[2024-11-06 16:12] LABS: Basophils # 0.1 K/mm3 (0-0.2); Basophils % 0.5 % (0.1-2.0); Eosinophils # 0.1 K/mm3 (0.0-0.4); Eosinophils % 0.7 % (0.1-12.0); Hematocrit 37.6 % (37.0-47.0); Hemoglobin 11.9 g/dL (12.2-16.2); Lymphocytes % 12.8 % (10-50); Mean Corpuscular HGB Conc 31.6 g/dL (31.8-35.4); Mean Corpuscular Hemoglobin 27.5 pg (27.0-31.2); Mean Platelet Volume 10.1 fl (7.4-10.4); Monocytes # 0.7 K/mm3 (0.1-1.0); Monocytes % 4.3 % (1.7-9.3); Neutrophils # 12.9 K/mm3 (1.8-7.8); Neutrophils % 80.9 % (37.0-80.0); Platelet Count 336 K/mm3 (142-424); Red Blood Count 4.32 M/mm3 (4.20-5.40); Red Cell Distribution Width 15.6 % (11.5-17.5); White Blood Count 15.9 K/mm3 (4.8-10.8)
[2024-11-06 16:14] LABS: MANUAL DIFFERENTIAL MANUAL DIFFERENTIAL (MANUAL DIFF)
--- NOTE | 2024-11-06 16:15 | XR_ITS ---
PROCEDURE INFORMATION: Exam: XR Chest Exam date and time: 11/06/2024 4:29 PM Age: 79 years old Clinical indication: Cough and shortness of breath; Additional info: Cough SOA TECHNIQUE: Imaging protocol: Radiologic exam of the chest. Views: 1 view. COMPARISON: CT CHEST W CON 04/16/2024 1:53 PM FINDINGS: Lungs: Bibasilar atelectasis and/or infiltrate. Pleural spaces: Right-sided pleural effusion not excluded. Heart/Mediastinum: Cardiomegaly. Vasculature: Elongation of the thoracic aorta with calcification. Bones/joints: Osteopenia. Degenerative change involving the shoulders and spine. IMPRESSION: 1. Bibasilar atelectasis and/or infiltrate. 2. Small right-sided pleural effusion not excluded.
[2024-11-06 16:21] LABS: Albumin Level 3.9 g/dl (3.5-5.0); Chloride 105 mmol/L (98-107); Potassium 3.8 mmoL/L (3.5-5.1); Sodium 140 mmol/L (136-145)
[2024-11-06 16:23] LABS: Blood Urea Nitrogen 18 mg/dl (7-17); Creatinine Clearance Estimated 34 mL/min (50-200); Estimated Glomerular Filt Rate 69 ml/min (>60); GFR (African American) 83 ML/MIN (>60)
[2024-11-06 16:24] LABS: Alanine Aminotransferase 20 U/L (12-78); Albumin/Globulin Ratio 1.3 (1.1-1.8); Alkaline Phosphatase 83 U/L (38-126); Anion Gap 7.8 mEq/L (5-15); Aspartate Amino Transferase 32 U/L (14-36); Bilirubin,Total 0.4 mg/dl (0.2-1.3); Calcium 9.4 mg/dl (8.4-10.2); Carbon Dioxide 31 mmol/L (22.0-30.0); Globulin 2.9 g/dL (1.3-3.2); Glucose 95 mg/dl (74-100); Total Protein,Serum 6.8 g/dl (6.3-8.2)
[2024-11-06 16:26] LABS: Lymphocytes % 14 % (10-50); Monocytes % 7 % (2-9); Neutrophils % 79 % (42-76); Total Cells Counted 100
[2024-11-06 16:27] LABS: Platelet Estimate Normal; RBC Morphology Normal
[2024-11-06] MEDS: ACETAMINOPHEN 500MG TAB 1000 MG PO (16:31)
[2024-11-06 16:50] LABS: Coronavirus 19, PCR Not Detected (NotDetected); Influenza A, PCR Not Detected (NotDetected); Influenza B, PCR Not Detected (NotDetected)
[2024-11-06 17:14] LABS: Lactate Venous 1.1 mmol/L (0.4-2.0); VBG Base Excess 1.6 mmol/L (-2.4-2.3); VBG HCO3 27.6 mmol/L (23-30); VBG PH 7.33 mmol/L (7.31-7.41); VBG PO2 39.1 mmol/L (28-40); VBG Total CO2 29.3 mmol/L (23-27)
[2024-11-06] MEDS: DOXYCYCLINE HYCL 100 MG TABLET PO (17:22)
[2024-11-06] MEDS: METHYLPREDNISOLONE SOD SUCC 125MG VIAL 125 MG IV (17:22)
[2024-11-06] MEDS: IPRATROPIUM/ALBUTEROL 3 ML NEB 9 ML IH (17:22)
[2024-11-06 17:24] LABS: VBG PCO2 54.1 mmol/L (35-51)
--- NOTE | 2024-11-06 17:55 | CT_ITS ---
PROCEDURE INFORMATION: Exam: CTA Abdomen and Pelvis With Contrast Exam date and time: 11/06/2024 6:14 PM Age: 79 years old Clinical indication: Injury or trauma; Fall; Fracture, traumatic; Additional info: Pubic rami fracture TECHNIQUE: Imaging protocol: Computed tomographic angiography of the abdomen and pelvis with contrast. Exam focused on the arteries. 3D rendering (Not supervised by radiologist): MIP and/or 3D reconstructed images were created by the technologist. Radiation optimization: All CT scans at this facility use at least one of these dose optimization techniques: automated exposure control; mA and/or kV adjustment per patient size (includes targeted exams where dose is matched to clinical indication); or iterative reconstruction. Contrast material: ISOVUE 370; Contrast volume: 80 ml; Contrast route: INTRAVENOUS (IV); COMPARISON: CT BONY PELVIS 11/06/2024 4:26 PM FINDINGS: Diaphragm: Large hiatal hernia. Aorta: Mild aortic calcification without aneurysm or dissection. Celiac trunk and mesenteric arteries: No occlusion or significant stenosis. Renal arteries: No occlusion or significant stenosis. Right iliac arteries: No occlusion or significant stenosis. Left iliac arteries: No occlusion or significant stenosis. Liver: There are calcified granulomas involving the liver. Gallbladder and biliary ducts: Unremarkable. No calcified stones. No ductal dilation. Pancreas: Pancreas is atrophic. Spleen: Calcified granulomas involving the spleen. Adrenal glands: Non-specific thickening involving the bilateral adrenal glands. Kidneys and ureters: 1.5 cm left renal cyst. 5 mm left renal calculus. Additional small renal hypodensities are too small to characterize. No acute renal injury. Stomach and bowel: Diverticulosis without diverticulitis. Appendix: No evidence of appendicitis. Intraperitoneal space: Unremarkable. No free air. No significant fluid collection. Lymph nodes: Unremarkable. No enlarged lymph nodes. Urinary bladder: Unremarkable. No mass. Reproductive: Atrophic uterus. Bones/joints: Degenerative change involving the spine. There are displaced right-sided pubic rami fractures. Chronic left inferior pubic ramus fracture. Nondisplaced right sacral fracture. There is right-sided pelvic hemorrhage adjacent to fractures. Soft tissues: Unremarkable. IMPRESSION: 1. Displaced right-sided pubic rami fractures. 2. Nondisplaced right sacral fracture. 3. Right pelvic hemorrhage adjacent to the right-sided pubic rami fractures. No contrast extravasation to indicate active bleeding. 4. No evidence of acute visceral injury. 5. Nonemergent findings as above.
--- NOTE | 2024-11-06 17:55 | CT_ITS ---
PROCEDURE INFORMATION: Exam: CTA Chest With Contrast Exam date and time: 11/06/2024 6:14 PM Age: 79 years old Clinical indication: Injury or trauma; Fall; Blunt trauma (contusions or hematomas); Additional info: Pubic rami fracture TECHNIQUE: Imaging protocol: Computed tomographic angiography of the chest with contrast. Exam focused on the arteries. 3D rendering (Not supervised by radiologist): MIP and/or 3D reconstructed images were created by the technologist. Radiation optimization: All CT scans at this facility use at least one of these dose optimization techniques: automated exposure control; mA and/or kV adjustment per patient size (includes targeted exams where dose is matched to clinical indication); or iterative reconstruction. Contrast material: ISOVUE 370; Contrast volume: 80 ml; Contrast route: INTRAVENOUS (IV); COMPARISON: CT CHEST W CON 04/16/2024 1:53 PM FINDINGS: Limitations: Patient motion. Patient respiratory motion. Pulmonary arteries: No convincing evidence of pulmonary embolus. Aorta: Aortic calcification without aneurysm or dissection. Lungs: Mild scattered linear atelectasis or scarring. Coarse scarring or atelectasis at the left lower lobe, appearance similar from prior. No consolidation to indicate pneumonia. Pleural spaces: Unremarkable. No pneumothorax. No pleural effusion. Heart: Unremarkable. No cardiomegaly. No pericardial effusion. Lymph nodes: Unremarkable. No enlarged lymph nodes. Diaphragm: Large hiatal hernia. Bones/joints: Degenerative change involving the spine. Osteopenia. Soft tissues: Unremarkable. IMPRESSION: 1. Examination is limited by patient respiratory motion. 2. No convincing evidence of pulmonary embolus. 3. Chronic findings as above.
--- NOTE | 2024-11-06 18:00 | PC.NURSE ---
called report francisca alfaro on 2nd floor
[2024-11-06] MEDS: SODIUM CHLORIDE 0.9% 10ML SYR (RAD ONLY) 10 ML IV (18:16)
[2024-11-06] MEDS: 0.9 % SODIUM CHLORIDE 50 ML VIAL IV (18:16)
[2024-11-06] MEDS: IOPAMIDOL-370 (76%);100ML BOTTLE 80 ML IV (18:17)
--- NOTE | 2024-11-06 18:50 | PC.NURSE ---
MEDICAID PLAN COMPLIANCE DIRECTOR NOTIFIED OF ADMISSION
--- NOTE | 2024-11-06 19:13 | PC.NURSE ---
Patient admitted; Report called by basilio Varghese; Called floor to see if patient can be moved to floor, waiting on tech to come get patient.
--- NOTE | 2024-11-06 20:21 | P.HP_ITS ---
<Statement entered by Norm Choudhary MD - 11/13/24 11:03> I personally examined patient and agree with the plan of care outlined by the AIRPLANE TUBE BUILDER. History of Present Illness *Admission Date: 11/06/24 *Reason for visit:: Fall *History of present illness: This is an 79-year-old female who has a past medical history significant for bronchiectasis, smoker, renal insufficiency, COPD, emphysema of the lung, hyponatremia, COPD, PR, GERD, cataract, and hypertension who presents with a chief complaint of pain post fall. Due to the patient's symptoms, she presented to the emergency room for evaluation. While in the emergency room, CTA of the chest was negative for any acute cardiopulmonary or intrathoracic process. CTA of the abdomen and pelvis revealed a displaced right sided pubic rami fracture, nondisplaced right sacral fracture, right pubic hemorrhage in addition to the right-sided pubic fracture-no evidence of extravasation to indicate active bleed, and no evidence of acute visceral injury.CT scan of the pelvis revealed displaced and comminuted fractures involving the right superior and inferior pubic rami, nondisplaced right sacral fracture, soft tissue injury/hemorrhage adjacent to the right-sided pubic rami fractures. The case was discussed with the orthopedic team (the attending and myself), and he highlighted these were nonoperative nonemergent findings. He recommended patient have physical therapy, pain management, a walker. Incidentally, patient was noted to be acutely hypoxic requiring supplemental oxygen. As a result, patient is being admitted for further management. During my evaluation of the patient, patient states he tripped over a toolbox and landed on tile ayanna. Post fall, patient had significant pain and inability to tolerate weightbearing. Patient states that she was recently evaluated by Dr. Castrejon where he had patient walk up and down the hallway. One can assume, that he was evaluating patient for potential supplemental oxygen as an outpatient. Review of the EMR shows patient performed a 6-minute walk test and during ambulation her oxygen saturation decreased to 85% requiring 2 L of oxygen by nasal cannula (this evaluation was performed on September 18, 2024). Review of celebrity manager note on the same date shows to initiate supplemental oxygen at 2 L per nasal cannula. She is denying any lightheadedness or syncopal episode. Moreover, patient denies any chest pain, dyspnea, PND, orthopnea, nausea, vomiting, or diarrhea. Additional pertinent labs obtained including white blood cell count of 15.9, hemoglobin 11.9, neutrophils 80.9%, pCO2 of 54.1, carbon oxide 31, and BUN of 18. [facility] Disclaimer: The information contained in this section may have been updated after the patient was seen, as this information can be updated by other users. Medical History Chronic cough Bronchiectasis Smoking greater than 30 pack years Mucus plug in respiratory tract Fatigue Cough Allergic rhinitis Encounter for immunization Renal insufficiency, mild Periorbital ecchymosis of left eye COPD (chronic obstructive pulmonary disease) with chronic bronchitis Emphysema of lung Hyponatremia Abnormal CT scan, chest COPD with exacerbation Heart attack History of cataract GERD (gastroesophageal reflux disease) Hypertension Surgical History History of cataract surgery History of tonsillectomy Family History Other Cancer Diabetes Heart attack Hypertension Stroke Social History (Updated 11/06/24 @ 20:17 by Luana Choudhury RN) Smoking Status: Current every day smoker alcohol intake: current current occupational status: retired Travel in the last 8 weeks: Inside the [place] Have you lived/traveled outside [place] in past 30 days?: No Contact w/someone who lives/traveled outside US past 30 days?: No Exposure to someone with infectious disease in past 14 days?: No Do you have a fever (greater than 100.4 F or 38 C)?: No Have you tested positive for COVID-19: No Exposed to someone with COVID-19 in past 14 days?: No Do you have a sore throat?: No Do you have a cough?: No Do you have any weakness?: No Do you have any diarrhea?: No Are you experiencing any unusual bleeding?: No Do you have any muscle aches/pain?: No Do you have any abdominal pain?: No Are you experiencing loss of taste or smell?: No Other Medical History Have you received the Flu Vaccine for this season: Yes Have you received the Pneumonia Vaccine: No Review of Systems Review of Systems Review of systems:: pertinent systems reviewed and negative unless documented below Constitutional Constitutional: Reports system reviewed and no additional complaints, except as documented Eyes Eyes: Reports system reviewed and no additional complaints, except as documented ENT Ears, Nose, Mouth, and Throat: Reports system reviewed and no additional complaints, except as documented *Cardiovascular Cardiovascular: Reports system reviewed and no additional complaints, except as documented *Respiratory Respiratory: Reports system reviewed and no additional complaints, except as documented *Gastrointestinal Gastrointestinal: Reports system reviewed and no additional complaints, except as documented *Genitourinary Genitourinary: Reports system reviewed and no additional complaints, except as documented *Musculoskeletal Musculoskeletal: Reports limited range of motion Integumentary/Breasts Skin/Breast: Reports system reviewed and no additional complaints, except as documented *Neurologic Neurologic: Reports system reviewed and no additional complaints, except as documented Psychiatric Psychiatric: Reports system reviewed and no additional complaints, except as documented Endocrine Endocrine: Reports system reviewed and no additional complaints, except as documented Hematologic/Lymphatic Hematologic/Lymphatic: Reports system reviewed and no additional complaints, except as documented Allergic/Immunologic Allergic/Immunologic: Reports system reviewed and no additional complaints, except as documented Meds Home Medications and Allergies Home Medications ?Medication ?Instructions ?Recorded ?Confirmed ?Type acetaminophen 325 mg tablet 650 mg PO NEEDED PRN pain 02/07/18 11/06/24 History (Tylenol) cholecalciferol (vitamin D3) 75 25 mcg PO DAILY 06/27/24 11/06/24 History mcg (3,000 unit) tablet diphenhydramine HCl 25 mg tablet 25 mg PO BID #180 tabs 09/12/24 11/06/24 Rx (Benadryl Allergy) albuterol sulfate 90 mcg/actuation 2 inh inhalation Q4-6H PRN 09/17/24 11/06/24 Rx aerosol inhaler (Ventolin HFA) Shortness Of Breath Or Wheezing #8.5 grams fluticasone propionate 50 1 spray intranasal DAILY allergies 09/17/24 11/06/24 Rx mcg/actuation nasal #48 grams spray,suspension (Flonase Allergy Relief) glycopyrrolate 9 mcg-formoterol 2 puff inhalation BID 90 days 09/18/24 11/06/24 Rx 4.8 mcg HFA aerosol inhaler #10.7 grams (Bevespi Aerosphere) aspirin 81 mg chewable tablet 81 mg PO DAILY 11/06/24 11/06/24 History benazepril 5 mg tablet 2.5 mg PO DAILY 11/06/24 11/06/24 History rabeprazole 20 mg tablet,delayed 20 mg PO DAILY 11/06/24 11/06/24 History release New Prescriptions to Start Prescriptions: Allergies Allergy/AdvReac Type Severity Reaction Status Date / Time No Known Allergies Allergy Verified 09/18/24 13:58 Exam Data for Last 24 hours Vital signs and Labs for Last 24 Hours: Temp Pulse Resp BP Pulse Ox O2 Del Method O2 Flow Rate 98.5 F 96 H 21 146/70 H 94 L Nasal Cannula 2 11/06/24 18:01 11/06/24 19:00 11/06/24 19:00 11/06/24 19:00 11/06/24 19:00 11/06/24 18:01 11/06/24 18:01 Laboratory Results - last 24 hr 11/06/24 16:00: SARS-CoV-2 (PCR) Not detected, Influenza A Untype (PCR) Not detected, Influenza Type B (PCR) Not detected 11/06/24 16:08: WBC 15.9 H, RBC 4.32, Hgb 11.9 L, Hct 37.6, MCV 87.0, MCH 27.5, MCHC 31.6 L, RDW 15.6, Plt Count 336, MPV 10.1, Neut % (Auto) 80.9 H, Lymph % (Auto) 12.8, [place] % (Auto) 4.3, Eos % (Auto) 0.7, Baso % (Auto) 0.5, Neut # (Auto) 12.9 H, Lymph # (Auto) 2.0, [place] # (Auto) 0.7, Eos # (Auto) 0.1, Baso # (Auto) 0.1, Total Counted 100, Neutrophils % (Manual) 79 H, Lymphocytes % (Manual) 14, Monocytes % (Manual) 7, Platelet Estimate Normal, RBC Morphology Normal, Sodium 140, Potassium 3.8, Chloride 105, Carbon Dioxide 31 H, Anion Gap 7.8, BUN 18 H, Creatinine 0.80, Estimated Creat Clear 34, Estimated GFR 69, Est GFR ( Amer) 83, Glucose 95, Calcium 9.4, Total Bilirubin 0.4, AST 32, ALT 20, Alkaline Phosphatase 83, Total Protein 6.8, Albumin 3.9, Globulin 2.9, Albumin/Globulin Ratio 1.3 11/06/24 16:50: VBG pH 7.33, VBG pCO2 54.1 H, VBG pO2 39.1, VBG HCO3 27.6, VBG Total CO2 29.3 H, VBG O2 Saturation 71.0 H, VBG Base Excess 1.6, VBG Lactic Acid 1.1 I & O for Last 24 hours: Intake & Output 11/03/24 11/04/24 11/05/24 11/06/24 23:59 23:59 23:59 23:59 Weight 48.988 kg Constitutional Constitutional: no acute distress and thin *Routine HEENT Exam Head: Present normocephalic and atraumatic Eye: Present EOMI, PERRL and normal accommodation ENT: Present mucous membranes moist *Routine Neck Exam Neck: Present supple, full ROM and trachea midline *Routine Respiratory Exam Respiratory: Present distant breath sounds and diminished air movement *Routine Cardiovascular Exam Cardiovascular: Present RRR, Normal S1 and Normal S2 Comments: PVCs *Routine Abdominal Exam Abdominal: Present soft and normoactive bowel sounds *Routine Rectal Exam Rectal:: deferred *Routine Genitalia Exam Genitalia:: deferred *Routine Extremities Exam Extremities: Present pulses intact and normal capillary refill Routine Back/Spine/Pelvis Exam Pelvis: Present buttock ecchymosis *Routine Skin Exam Skin: Present intact, dry, warm and normal turgor *Routine Neurological Exam Neurological: Present alert, oriented X3 and CN II-XII intact Routine Psychiatric Exam Psychiatric: Present normal affect, normal thought process, cooperative, good insight and good judgment H&P: Result Impressions 79-year-old female who presents after a fall sustaining multiple fractures to the pelvis that are nonoperative. Patient will need pain management and walker. Notably, she was found to be hypoxic in the emergency room. This is not new findings, evaluation by her primary celebrity manager show she is requiring supplemental oxygen and recommended 2 L of oxygen by nasal cannula as an outpatient-patient was denying any oxygen requirements while at home Assessment and Plan *Assessment and plan (1) Pelvic hematoma in female: Status: Acute Category: Medical Code(s): N94.89 - Other specified conditions associated with female genital organs and menstrual cycle (2) Closed sacral fracture: Status: Acute Qualifiers: Encounter type: initial encounter Zone of sacrum fracture: unspecified portion of sacrum Qualified Code(s): S32.10XA - Unspecified fracture of sacrum, initial encounter for closed fracture Category: Medical Code(s): S32.10XA - Unspecified fracture of sacrum, initial encounter for closed fracture (3) Acute on chronic respiratory failure with hypoxia and hypercapnia: Status: Acute Category: Medical Code(s): J96.21 - Acute and chronic respiratory failure with hypoxia; J96.22 - Acute and chronic respiratory failure with hypercapnia (4) Leukocytosis: Status: Acute Qualifiers: Leukocytosis type: unspecified Qualified Code(s): D72.829 - Elevated white blood cell count, unspecified Category: Medical Code(s): D72.829 - Elevated white blood cell count, unspecified (5) Fall: Status: Acute Qualifiers: Encounter type: initial encounter Qualified Code(s): W19.XXXA - Unspecified fall, initial encounter Category: Medical Code(s): W19.XXXA - Unspecified fall, initial encounter Plan Assessment: Pelvic fracture with hematoma/close sacral fracture -Will have physical therapy and Occupational Therapy evaluate patient -Depending on findings by physical therapy, patient may need home health versus inpatient rehab -Will provide pain management -Orthopedic team has been consulted Chronic hypoxic hypercapnic respiratory failure -Outpatient evaluation by patient's celebrity manager who performed 6-minute walk test shows patient requires 2 L of oxygen during ambulation -Will establish home O2 for patient -Patient can follow-up with her celebrity manager on next scheduled visit -Currently patient is without any symptoms of shortness of breath or dyspnea Leukocytosis: -Currently no findings consistent with infection -This most likely is in the setting of most recent trauma -Will trend white blood cell count -If any fever or worsening of leukocytosis, will obtain blood cultures x 2 Mechanical fall -Place patient on fall precautions Plan: Admit patient to the Med[facility] unit Up with assistance Fall precaution Occupational Therapy Physical therapy Supplemental oxygen maintain oxygen saturation greater than 92% Consult case management Cardiac diet CBC/BMP daily 40 mg Lovenox subcu daily for DVT prophylax 5 mg of hydrocodone p.o. every 4 hours as needed moderate pain DuoNebs every 6 hours as needed for shortness of air 2 mg morphine IV push every 2 hours as needed severe pain 4 mg Zofran IV push every 8 hours pain on Full code I have discussed this case with attending physician Dr. Choudhary and I look forward to more input
[2024-11-06] MEDS: SODIUM CHLORIDE 3% 15ML NEB 3 ML IH (20:56)
[2024-11-07 04:00] VITALS: BP 146/70; PULSE 79; RESP 18; TEMP 36.6; O2SAT 95; BMI 21.0
[2024-11-07] MEDS: HYDROCODONE/APAP 5/325 MG TABLET 1 TAB PO ×2 (04:30→14:40)
--- NOTE | 2024-11-07 04:35 | PC.NURSE ---
Ms Funmilayo Bassett was newly admitted on behalf of the following documented diagnoses: nonoperative pelvic fracture and respiratory failure. Admission assessments and home medication reconciliation was completed by me during this shift. Concerning her pelvic fracture (pain primarily noted to right hip), the patient stated that she had fallen at home in her dining room. Pain control was provided from [place] per [facility] once this shift, and bed-rest was encouraged to avoid further acute injury and promote sleep. The patient explained this shift that she feels little to no pain during rest, but it becomes excruciating during repositioning and movement of her right lower extremity. However, she is able to exhibit fluid range of motion. She currently requires a lot of assistance during transfers. A purewick has been used for voiding needs. Concerning her respiratory failure, the patient explained that she had been having shortness of breath with exertion as well; she stated that she does not wear oxygen at home. Barrel-chested appearance. Currently, the patient has been tolerating 3 L of oxygen via nasal cannula (oxygen saturations remain > 90%). She also endorses an intermittent cough with sputum production. During auscultation of her lungs, expiratory wheezing was heard in the bases; diminished lung sounds were heard throughout. Auscultation of heart and bowels were within normal findings. Vital signs stable. She was observed to have eyes closed, respirations even and unlabored, and no apparent distress for the majority of the night. At this time, the patient is resting in bed without further complaints. No acute changes noted thus far. Call light within reach.
[2024-11-07 06:45] LABS: Basophils % 0.1 % (0.1-2.0); Hematocrit 33.1 % (37.0-47.0); Lymphocytes # 0.8 K/mm3 (0.7-4.5); Lymphocytes % 6.8 % (10-50); Mean Corpuscular Hemoglobin 27.2 pg (27.0-31.2); Mean Corpuscular Volume 84.9 fl (81-99); Mean Platelet Volume 10.5 fl (7.4-10.4); Monocytes # 0.5 K/mm3 (0.1-1.0); Neutrophils # 10.4 K/mm3 (1.8-7.8); Neutrophils % 88.6 % (37.0-80.0); Platelet Count 314 K/mm3 (142-424); Red Cell Distribution Width 15.4 % (11.5-17.5); White Blood Count 11.7 K/mm3 (4.8-10.8)
[2024-11-07 06:51] LABS: Anion Gap 12.1 mEq/L (5-15); Blood Urea Nitrogen 20 mg/dl (7-17); Calcium 9.3 mg/dl (8.4-10.2); Carbon Dioxide 26 mmol/L (22.0-30.0); Chloride 102 mmol/L (98-107); Creatinine Clearance Estimated 36 mL/min (50-200); Estimated Glomerular Filt Rate 80 ml/min (>60); GFR (African American) 97 ML/MIN (>60); Glucose 141 mg/dl (74-100); Potassium 4.1 mmoL/L (3.5-5.1); Sodium 136 mmol/L (136-145)
[2024-11-07 07:42] LABS: Hemoglobin 10.7 g/dL (12.2-16.2)
[2024-11-07 08:00] VITALS: BP 146/67; PULSE 74; RESP 17; TEMP 36.6; O2SAT 92
--- NOTE | 2024-11-07 08:03 | HMH.PHAINT1 ---
Pharmacy Intervention Comments: home medication list verified using list from outpatient pharmacy
[2024-11-07] MEDS: ENOXAPARIN 40MG/0.4ML SYRINGE 40 MG SUBCUT (08:30)
[2024-11-07 09:14] LABS: Thyroid Stimulating Hormone 0.34 uIU/mL (0.465-4.68)
[2024-11-07 09:19] LABS: Vitamin B12 346 pg/mL (239-931)
[2024-11-07 09:24] LABS: Free T4 (Free Thyroxine) 1.27 ng/dl (0.78-2.19)
--- NOTE | 2024-11-07 10:54 | HMH.OTEV ---
OT Inpatient Evaluation Rehab OT IP Evaluation Start: 11/06/24 19:20 Freq: ONCE Status: Active Protocol: Document 11/07/24 10:50 RMARSHALL (Rec: 11/07/24 10:54 [id number] Rehab OT IP Assessment Subjective History Pt oriented x 3 on arrival. Pt agreeable to engage in therapy evaluation. Pt admitted on 11/06/24 due to a fall at home resulting in a pelvic fx. History and physical: This is an 79-year-old female who has a past medical history significant for bronchiectasis , smoker, renal insufficiency, COPD, emphysema of the lung, hyponatremia, COPD, [place], GERD, cataract, and hypertension who presents with a chief complaint of pain post fall. Due to the patient's symptoms, she presented to the emergency room for evaluation. While in the emergency room, CTA of the chest was negative for any acute cardiopulmonary or intrathoracic process. CTA of the abdomen and pelvis revealed a displaced right sided pubic rami fracture, nondisplaced right sacral fracture, right pubic hemorrhage in addition to the right-sided pubic fracture-no evidence of extravasation to indicate active bleed, and no evidence of acute visceral injury.CT scan of the pelvis revealed displaced and comminuted fractures involving the right superior and inferior pubic rami, nondisplaced right sacral fracture, soft tissue injury/ hemorrhage adjacent to the right-sided pubic rami fractures. The case was discussed with the orthopedic team (the attending and myself ), and he highlighted these were nonoperative nonemergent findings. He recommended patient have physical therapy, pain management, a walker. Incidentally, patient was noted to be acutely hypoxic requiring supplemental oxygen. As a result, patient is being admitted for further management. Subjective Prior to being in the hospital , pt lived at home with her . Pt claims normally she is independent with all ADLs and IADLs. She does not use a walker or cane during functional transfers. Pt also still drives. No requirement of O2 at home. Objective Patient Orientation Person,Place,Birthday Right Upper Extremity Gross ROM WFL Left Upper Extremity Gross ROM WFL Bed Mobility bed mobility-scooting,bed mobility - supine/sit Assist Level Minimal x 1 (25% assist) Transfer Training Sit/Stand/Step Transfer Assist Level Minimal x 2 (25% assist) Chair Transfer Ability Minimal x 2 (25% assist) Chair Transfer Technique Sit to/from Ambulatory Chair Transfer Assistive Devices Rolling Walker Lower Body Dressing Ability Unable/dependent Performing Toilet Hygiene Ability Maximum Assistance Rehab OT IP prob,goals,plan Problems Date of Evaluation: 11/07/24 OT IP Problems Bed Mobility,Transfers,Balance ,Self care,Safety Rehab Potential Rehab Potential Good Equipment Needs Assistive Devices Rolling / Wheeled Walker Plan OT intervention Plan Bed Mobility,Transfers,Balance ,Self care,Safety,Therapeutic Exercise OT Plan Frequency Daily Duration LOS Discharge Goals Bed Mobility Ability Standby Assistance Sit to Stand Chair Transfer Ability Contact Guard/Hand Hold Chair Transfer Ability Contact Guard/Hand Hold, Minimal x 1 (25% assist) Chair Transfer Technique Sit to/from Ambulatory Chair Transfer Assistive Devices Rolling Walker Feeding Ability Assist with Tray Set Up Lower Body Dressing Ability Moderate Assistance Upper Body Dressing Ability Standby Assistance Bathing Ability Moderate Assistance Performing Toilet Hygiene Ability Moderate Assistance Overall Commode/Toilet Transfer Ability Contact Guard Commode/Toilet Transfer Technique Sit to/from Ambulatory Commode/Toilet Transfer Assistive Grab Bars Devices Oral Care Assist Standby Assistance Decrease in Endurance Yes Discharge Plan OT Discharge Plan Pt will continue to be seen for OT services while at [facility]. Pt would benefit most from short term rehab at SNF following discharge from hospital. Continued skilled therapy is very important in order for patient to improve strength, safety, endurance, ADL independence, and functional transfers to reach PLOF. Eval Complexity Eval Charge Codes 09367 - Moderate Complexity PHYSICIAN CERTIFICATION: I certify the specified therapy services for Funmilayo Bassett are required, authorized, and reviewed every 30 days.
--- NOTE | 2024-11-07 11:33 | SW/DCPLANNER ---
Addendum entered by Diane Wagoner 11/07/24 13:48: Patient qualifying stay will be Friday 11/10. Per Chanelle if patient is medically stable for discharge Monday they can accept. Addendum entered by Diane Wagoner 11/07/24 12:30: Per Chanelle myers/ [facility] she can accept this patient once medically stable for discharge. I will continue to follow up w/ jordan, and [facility]. Original Note: I spoke w/ this patient regarding plans once medically stable for discharge. PT evaluated patient and recommended SNF level of care. Patient is agreeable to placement and prefers [facility]. I will fax information to Chanelle myers/ [facility] this AM. Discharge date is unknown at this time. I will continue to follow up.
--- NOTE | 2024-11-07 11:55 | HMH.PTEV ---
Physical Therapy Evaluation Rehab PT IP Evaluation Start: 11/06/24 19:20 Freq: ONCE Status: Active Protocol: Document 11/07/24 11:52 KODI (Rec: 11/07/24 11:55 KODI [id number]) Subjective/History History History 79-year-old female who has a past medical history significant for bronchiectasis, smoker, renal insufficiency, COPD, emphysema of the lung, hyponatremia, COPD, [place], GERD, cataract, and hypertension who presents with a chief complaint of pain post fall. Due to the patient 's symptoms, she presented to the emergency room for evaluation. While in the emergency room, CTA of the chest was negative for any acute cardiopulmonary or intrathoracic process. CTA of the abdomen and pelvis revealed a displaced right sided pubic rami fracture, nondisplaced right sacral fracture, right pubic hemorrhage in addition to the right-sided pubic fracture-no evidence of extravasation to indicate active bleed, and no evidence of acute visceral injury.CT scan of the pelvis revealed displaced and comminuted fractures involving the right superior and inferior pubic rami, nondisplaced right sacral fracture, soft tissue injury/ hemorrhage adjacent to the right-sided pubic rami fractures. The case was discussed with the orthopedic team (the attending and myself ), and he highlighted these were nonoperative nonemergent findings. He recommended patient have physical therapy, pain management, a walker. Incidentally, patient was noted to be acutely hypoxic requiring supplemental oxygen. As a result, patient is being admitted for further management. Pt reports she lives with , 1 TRACY the home, and she is generally independent with all mobility without AD. Subjective Subjective Pt co pain in the R LE with any movement, but agrees to mobility assessment. [facility] [address] How much help from another person do you currently need... Turning from your back to your side A little while in a flat bed without using bedrails? Moving from lying on back to sitting on A little the side of a flat bed without using bedrails? Moving to and from a bed to a chair ( A little including a wheelchair)? Standing up from a chair using your arms A little ? (e.g., wheelchair, bedside chair) Walking in hospital room? A little Climbing 3-5 steps with a railing? A lot Mobility Score 17 Mobility Level [facility] Mobility Calculator Mobility 5 Stand (1 or more minutes) Rehab PT IP Eval Objective Appearance Patient Behavior Appropriate Patient Orientation Person,Place,Time Difficulty following instructions none Speech Pattern Clear Ambulation Patient Able to Ambulate Yes Ambulation Observation IP General Gait Pattern Observation Antalgic Gait,Shuffling Step Ambulation Distance (feet) 5 Ambulation Assistive Device Rolling Walker Ambulation Ability Minimal x 1 (25% assist) Balance Ability to Arise Able, uses arms to help Sitting Balance Steady, safe Standing Balance Steady, wide stance Dynamic Sitting Balance Ability Good Dynamic Standing Balance Ability Fair Transfers Bed Transfer Ability Minimal x 1 (25% assist) Chair Transfer Ability Minimal x 1 (25% assist) Sit to Stand Bed Transfer Ability Minimal x 1 (25% assist) Sit to Stand Chair Transfer Ability Minimal x 1 (25% assist) Rehab PT IP prob,goals,plan Problems Date of Evaluation: 11/07/24 PT IP Problems Bed Mobility,Transfers,Gait Rehab Potential Rehab Potential Good Plan PT Intervention Plan Bed Mobility,Transfers,Gait, Therapeutic Exercise PT Plan Frequency Daily Duration LOS Discharge Goals Bed Transfer Ability Contact Guard/Hand Hold Sit to Stand Chair Transfer Ability Contact Guard/Hand Hold Ambulation Assistive Device Rolling Walker Ambulation Distance (feet) 15 Discharge Plan PT Discharge Plan Pt is currently most appropriate for rehab placement at this time. Skilled inpatient acute therapy services are indicated to improve stremngth, transfers, and ambulation in order to return pt to [facility]. Eval Complexity Eval Charge Codes 26825 - High Complexity PHYSICIAN CERTIFICATION: I certify the specified therapy services for Funmilayo Bassett are required, authorized, and reviewed every 30 days.
[2024-11-07 16:00] VITALS: BP 111/80; PULSE 76; O2SAT 96
--- NOTE | 2024-11-07 17:22 | PC.NURSE ---
aox4, has sat up to chair for most of the shift and tolerated well. still requiring 3lnc for o2 support.
[2024-11-07 20:00] VITALS: BP 154/83; PULSE 85; TEMP 37.1; O2SAT 91
--- NOTE | 2024-11-07 20:53 | EXP.PN ---
Subjective *Date: 11/07/24 *Time: 20:53 Interval history: Patient doing well, working with PT/OT. Open to going to SNF. Otherwise no other concerns. Exam Data for Last 24 hours Vital signs and Labs for Last 24 Hours: Temp Pulse Resp BP Pulse Ox O2 Del Method O2 Flow Rate 98 F 76 17 111/80 96 Nasal Cannula 3 11/07/24 08:00 11/07/24 16:00 11/07/24 08:00 11/07/24 16:00 11/07/24 16:00 11/07/24 17:21 11/07/24 17:21 Laboratory Results - last 24 hr 11/07/24 06:00: WBC 11.7 H D, RBC 3.90 L, Hgb 10.7 L D, Hct 33.1 L, MCV 84.9, MCH 27.2, MCHC 32.0, RDW 15.4, Plt Count 314, MPV 10.5 H, Neut % (Auto) 88.6 H, Lymph % (Auto) 6.8 L, [place] % (Auto) 4.0, Eos % (Auto) 0.0 L, Baso % (Auto) 0.1, Neut # (Auto) 10.4 H, Lymph # (Auto) 0.8, [place] # (Auto) 0.5, Eos # (Auto) 0.0, Baso # (Auto) 0.0, Sodium 136, Potassium 4.1, Chloride 102, Carbon Dioxide 26, Anion Gap 12.1, BUN 20 H, Creatinine 0.70, Estimated Creat Clear 36, Estimated GFR 80, Est GFR ( Amer) 97, Glucose 141 H D, Calcium 9.3, Vitamin B12 346, TSH 0.34 L, Free T4 1.27 I & O for Last 24 hours: Intake & Output 11/04/24 11/05/24 11/06/24 11/07/24 23:59 23:59 23:59 23:59 Intake Total 1567 / 1567 Output Total 100 / 100 Balance 1467 / 1467 Weight 49.668 kg 51.823 kg Microbiology Reports for the Last 24 Hours: Microbiology 11/06/24 21:48 Sputum - Expectorated Sputum Gram Stain - Final 11/06/24 21:48 Sputum - Expectorated Sputum Sputum Culture - Preliminary Constitutional Constitutional: no acute distress *Routine HEENT Exam Head: Present normocephalic Eye: Present EOMI and PERRL ENT: Present mucous membranes moist *Routine Neck Exam Neck: Present supple; Absent lymphadenopathy *Routine Respiratory Exam Respiratory: Present CTA bilaterally *Routine Cardiovascular Exam Cardiovascular: Present RRR *Routine Abdominal Exam Abdominal: Present soft and normoactive bowel sounds; Absent tenderness *Routine Extremities Exam Extremities: Absent cyanosis, clubbing or edema *Routine Skin Exam Skin: Present warm; Absent rash *Routine Neurological Exam Neurological: Present alert and oriented X3 Assessment and Plan *Assessment and plan (1) Pelvic hematoma in female: Status: Acute Category: Medical Code(s): N94.89 - Other specified conditions associated with female genital organs and menstrual cycle (2) Closed sacral fracture: Status: Acute Qualifiers: Encounter type: initial encounter Zone of sacrum fracture: unspecified portion of sacrum Qualified Code(s): S32.10XA - Unspecified fracture of sacrum, initial encounter for closed fracture Category: Medical Code(s): S32.10XA - Unspecified fracture of sacrum, initial encounter for closed fracture (3) Acute on chronic respiratory failure with hypoxia and hypercapnia: Status: Acute Category: Medical Code(s): J96.21 - Acute and chronic respiratory failure with hypoxia; J96.22 - Acute and chronic respiratory failure with hypercapnia (4) Leukocytosis: Status: Acute Qualifiers: Leukocytosis type: unspecified Qualified Code(s): D72.829 - Elevated white blood cell count, unspecified Category: Medical Code(s): D72.829 - Elevated white blood cell count, unspecified (5) Fall: Status: Acute Qualifiers: Encounter type: initial encounter Qualified Code(s): W19.XXXA - Unspecified fall, initial encounter Category: Medical Code(s): W19.XXXA - Unspecified fall, initial encounter Plan Funmilayo Bassett is a 79-year-old female who presented after a fall and was admitted for right pubic rami and sacral displaced fractures. #Fall #Right pubic rami, sacral displaced fractures #Right pelvic hematoma ? Orthopedic surgery consulted, advised fractures do not need interventions and WBAT. ? Hematoma is present proximal to the hemorrhage, no active extravasation on CTA. ? PT/OT consulted, recommending SNF. Discussed with case management, assisting with placement. #Acute on chronic hypoxic respiratory failure #Community-acquired pneumonia ? CXR shows bibasilar opacities, WBC improved from 15-11. ? Continue ceftriaxone, azithromycin. ? Required 2 L nasal cannula, baseline 2 L at night. Wean as tolerated. ? Follow-up sputum, blood cultures. #COPD ? Stable. Continue home Bevespi #Hypertension ? Hold home benazepril due to stable pressures. #GERD ? Continue home PPI. Full code DVT prophylaxis: Lovenox 40 mg
[2024-11-07] MEDS: PANTOPRAZOLE 40MG TABLET 40 MG PO (22:05)
[2024-11-07] MEDS: AZITHROMYCIN 250MG TABLET 250 MG PO (22:05)
[2024-11-07] MEDS: CEFTRIAXONE 1 GM 1 GM in 0.9 % SODIUM CHLORIDE 50 ML IV (22:06)
[2024-11-08] MEDS: HYDROCODONE/APAP 5/325 MG TABLET 1 TAB PO ×3 (00:14→20:04)
[2024-11-08 04:00] VITALS: BP 138/75; PULSE 92; RESP 18; TEMP 37; O2SAT 87; BMI 21.0
--- NOTE | 2024-11-08 05:52 | PC.NURSE ---
V/s, ox4. Pt is pending placement possibly for [facility]. Pt will have to stay until Monday to qualify for stay. Ortho is not operating on pt for fx, bedrest. No acute events to report. Plan of care ongoing.
[2024-11-08 06:53] LABS: Basophils % 0.3 % (0.1-2.0); Eosinophils # 0.1 K/mm3 (0.0-0.4); Eosinophils % 0.4 % (0.1-12.0); Hemoglobin 10.6 g/dL (12.2-16.2); Lymphocytes # 1.7 K/mm3 (0.7-4.5); Lymphocytes % 14.4 % (10-50); Mean Corpuscular HGB Conc 32.1 g/dL (31.8-35.4); Mean Corpuscular Hemoglobin 27.6 pg (27.0-31.2); Mean Corpuscular Volume 85.9 fl (81-99); Mean Platelet Volume 10.7 fl (7.4-10.4); Monocytes # 0.9 K/mm3 (0.1-1.0); Monocytes % 8.1 % (1.7-9.3); Neutrophils # 8.9 K/mm3 (1.8-7.8); Neutrophils % 76.5 % (37.0-80.0); Platelet Count 277 K/mm3 (142-424); Red Blood Count 3.84 M/mm3 (4.20-5.40); Red Cell Distribution Width 15.8 % (11.5-17.5); White Blood Count 11.7 K/mm3 (4.8-10.8)
[2024-11-08 07:04] LABS: Anion Gap 10.1 mEq/L (5-15); Blood Urea Nitrogen 20 mg/dl (7-17); Calcium 9.3 mg/dl (8.4-10.2); Carbon Dioxide 28 mmol/L (22.0-30.0); Chloride 102 mmol/L (98-107); Creatinine Clearance Estimated 36 mL/min (50-200); Estimated Glomerular Filt Rate 69 ml/min (>60); GFR (African American) 83 ML/MIN (>60); Glucose 93 mg/dl (74-100); Potassium 4.1 mmoL/L (3.5-5.1); Sodium 136 mmol/L (136-145)
[2024-11-08 08:00] VITALS: BP 130/63; PULSE 86; RESP 17; TEMP 36.9; O2SAT 96
[2024-11-08 08:52] LABS: Folate 6.97 ng/mL
[2024-11-08] MEDS: ENOXAPARIN 40MG/0.4ML SYRINGE 40 MG SUBCUT (09:10)
[2024-11-08] MEDS: AZITHROMYCIN 250MG TABLET 250 MG PO (09:10)
[2024-11-08] MEDS: ASPIRIN 81MG CHEWABLE TABLET 81 MG PO (09:10)
[2024-11-08 14:07] VITALS: BMI 21.0
[2024-11-08 16:00] VITALS: BP 144/73; PULSE 79; RESP 17; TEMP 37.3; O2SAT 99
--- NOTE | 2024-11-08 16:48 | P.PN_ITS ---
Subjective *Date: 11/08/24 *Time: 17:00 Interval history: Patient sitting on bedside chair without acute complaints. Working with physical therapy, excited that she got accepted to the [facility] as this is close to her family. Exam Data for Last 24 hours Vital signs and Labs for Last 24 Hours: Temp Pulse Resp BP Pulse Ox O2 Del Method O2 Flow Rate 99.2 F 79 17 144/73 H 99 Room Air 3 11/08/24 16:00 11/08/24 16:00 11/08/24 16:00 11/08/24 16:00 11/08/24 16:00 11/08/24 16:00 11/08/24 15:00 Laboratory Results - last 24 hr 11/08/24 06:25: WBC 11.7 H, RBC 3.84 L, Hgb 10.6 L, Hct 33.0 L, MCV 85.9, MCH 27.6, MCHC 32.1, RDW 15.8, Plt Count 277, MPV 10.7 H, Neut % (Auto) 76.5, Lymph % (Auto) 14.4, [place] % (Auto) 8.1, Eos % (Auto) 0.4, Baso % (Auto) 0.3, Neut # (Auto) 8.9 H, Lymph # (Auto) 1.7, [place] # (Auto) 0.9, Eos # (Auto) 0.1, Baso # (Auto) 0.0, Sodium 136, Potassium 4.1, Chloride 102, Carbon Dioxide 28, Anion Gap 10.1, BUN 20 H, Creatinine 0.80, Estimated Creat Clear 36, Estimated GFR 69, Est GFR ( Amer) 83, Glucose 93, Calcium 9.3, Folate 6.97 I & O for Last 24 hours: Intake & Output 11/05/24 11/06/24 11/07/24 11/08/24 23:59 23:59 23:59 23:59 Intake Total 1567 / 1567 460 / 460 Output Total 100 / 100 Balance 1467 / 1467 460 / 460 Weight 49.668 kg 51.823 kg 51.82 kg Microbiology Reports for the Last 24 Hours: Microbiology 11/06/24 21:48 Sputum - Expectorated Sputum Gram Stain - Final 11/06/24 21:48 Sputum - Expectorated Sputum Sputum Culture - Preliminary Gram Negative Rods Constitutional Constitutional: no acute distress *Routine HEENT Exam Head: Present normocephalic Eye: Present EOMI and PERRL ENT: Present mucous membranes moist *Routine Neck Exam Neck: Present supple; Absent lymphadenopathy *Routine Respiratory Exam Respiratory: Present CTA bilaterally *Routine Cardiovascular Exam Cardiovascular: Present RRR *Routine Abdominal Exam Abdominal: Present soft and normoactive bowel sounds; Absent tenderness *Routine Extremities Exam Extremities: Absent cyanosis, clubbing or edema *Routine Skin Exam Skin: Present warm; Absent rash *Routine Neurological Exam Neurological: Present alert and oriented X3 Assessment and Plan *Assessment and plan (1) Pelvic hematoma in female: Status: Acute Category: Medical Code(s): N94.89 - Other specified conditions associated with female genital organs and menstrual cycle (2) Closed sacral fracture: Status: Acute Qualifiers: Encounter type: initial encounter Zone of sacrum fracture: unspecified portion of sacrum Qualified Code(s): S32.10XA - Unspecified fracture of sacrum, initial encounter for closed fracture Category: Medical Code(s): S32.10XA - Unspecified fracture of sacrum, initial encounter for closed fracture (3) Acute on chronic respiratory failure with hypoxia and hypercapnia: Status: Acute Category: Medical Code(s): J96.21 - Acute and chronic respiratory failure with hypoxia; J96.22 - Acute and chronic respiratory failure with hypercapnia (4) Leukocytosis: Status: Acute Qualifiers: Leukocytosis type: unspecified Qualified Code(s): D72.829 - Elevated white blood cell count, unspecified Category: Medical Code(s): D72.829 - Elevated white blood cell count, unspecified (5) Fall: Status: Acute Qualifiers: Encounter type: initial encounter Qualified Code(s): W19.XXXA - Unspecified fall, initial encounter Category: Medical Code(s): W19.XXXA - Unspecified fall, initial encounter Plan Funmilayo Bassett is a 79-year-old female who presented after a fall and was admitted for right pubic rami and sacral displaced fractures. #Fall #Right pubic rami, sacral displaced fractures #Right pelvic hematoma ? Orthopedic surgery consulted, advised fractures do not need interventions, and WBAT. ? Hematoma is present proximal to the fracture, no active extravasation on CTA. ? PT/OT consulted, recommending SNF. Discussed with case management, assisting with placement. Pending pre-auth from [facility]. #Acute on chronic hypoxic respiratory failure #Community-acquired pneumonia ? CXR shows bibasilar opacities, WBC improved from 15-11. ? Continue ceftriaxone, azithromycin. ? Required 2 L nasal cannula, baseline 2 L at night. Wean as tolerated. ? Follow-up sputum, blood cultures. #COPD ? Stable. Continue home Bevespi #Hypertension ? Hold home benazepril due to stable pressures. #GERD ? Continue home PPI. Full code DVT prophylaxis: Lovenox 40 mg
--- NOTE | 2024-11-08 18:26 | PC.NURSE ---
pt has done well today. no complaints of soa. was able to wean o2 to 2l nc with o2 sats low to mid 90s. at rest RA sat 86%. x1 assist with transfer, no pain meds required. cb within reach, no needs at this time
[2024-11-08 20:00] VITALS: BP 104/80; PULSE 82; RESP 17; TEMP 36.8; O2SAT 92
[2024-11-08] MEDS: PANTOPRAZOLE 40MG TABLET 40 MG PO (20:03)
[2024-11-08] MEDS: CEFTRIAXONE 1 GM 1 GM in 0.9 % SODIUM CHLORIDE 50 ML IV (20:04)
--- NOTE | 2024-11-09 03:35 | PC.NURSE ---
Pt remains stable at this time. Respirations even and unlabored. Maintaining O2 on 2L NC. Pt is still alert and oriented. States that her hips are just sore from pelvic fracture. She is resting in recliner with eyes closed at this time. Call light is within reach.
[2024-11-09 04:00] VITALS: BP 132/61; PULSE 76; RESP 17; TEMP 36.7; O2SAT 96; BMI 20.9
[2024-11-09 06:14] VITALS: O2SAT 96
[2024-11-09] MEDS: GLYCOPYRROLATE IH ×2 (06:14→19:28)
[2024-11-09] MEDS: FORMOTEROL IH ×2 (06:14→19:28)
[2024-11-09] MEDS: [UNRECOGNIZED DRUG - OTHER] IH ×2 (06:14→19:28)
[2024-11-09] MEDS: HYDROCODONE/APAP 5/325 MG TABLET 1 TAB PO ×3 (06:17→21:20)
[2024-11-09 07:02] LABS: Basophils # 0.1 K/mm3 (0-0.2); Basophils % 0.7 % (0.1-2.0); Eosinophils # 0.2 K/mm3 (0.0-0.4); Hematocrit 33.7 % (37.0-47.0); Hemoglobin 10.5 g/dL (12.2-16.2); Lymphocytes # 1.7 K/mm3 (0.7-4.5); Lymphocytes % 16.2 % (10-50); Mean Corpuscular HGB Conc 31.2 g/dL (31.8-35.4); Mean Corpuscular Hemoglobin 27.2 pg (27.0-31.2); Mean Corpuscular Volume 87.3 fl (81-99); Mean Platelet Volume 11.1 fl (7.4-10.4); Monocytes # 0.9 K/mm3 (0.1-1.0); Monocytes % 8.9 % (1.7-9.3); Neutrophils # 7.4 K/mm3 (1.8-7.8); Neutrophils % 71.8 % (37.0-80.0); Platelet Count 286 K/mm3 (142-424); Red Blood Count 3.86 M/mm3 (4.20-5.40); Red Cell Distribution Width 15.8 % (11.5-17.5); White Blood Count 10.3 K/mm3 (4.8-10.8)
[2024-11-09 07:11] LABS: Chloride 100 mmol/L (98-107)
[2024-11-09 07:12] LABS: Potassium 4.2 mmoL/L (3.5-5.1); Sodium 134 mmol/L (136-145)
[2024-11-09 07:15] LABS: Blood Urea Nitrogen 16 mg/dl (7-17); Calcium 9.4 mg/dl (8.4-10.2); Creatinine Clearance Estimated 36 mL/min (50-200); Estimated Glomerular Filt Rate 80 ml/min (>60); GFR (African American) 97 ML/MIN (>60); Glucose 92 mg/dl (74-100)
[2024-11-09 08:00] VITALS: BP 128/81; PULSE 95; RESP 16; TEMP 36.9; O2SAT 96
[2024-11-09] MEDS: AZITHROMYCIN 250MG TABLET 250 MG PO (08:29)
[2024-11-09] MEDS: ASPIRIN 81MG CHEWABLE TABLET 81 MG PO (08:29)
[2024-11-09] MEDS: ENOXAPARIN 40MG/0.4ML SYRINGE 40 MG SUBCUT (08:29)
[2024-11-09 09:56] LABS: Anion Gap 9.2 mEq/L (5-15); Carbon Dioxide 29 mmol/L (22.0-30.0)
[2024-11-09] MEDS: PIPERCILLIN/TAZO 3.375 GM in 0.9 % SODIUM CHLORIDE 50 ML IV ×2 (10:20→17:54)
--- NOTE | 2024-11-09 15:15 | PC.NURSE ---
PT IS SITTING UP IN THE CHAIR. ALERT AND ORIENTED X4. EATING AND DRINKING FAIR. MEDICATED PER MAR FOR DISCOMFORT. LUNG SOUNDS DIMINISHED WITH RHONCHI (RML). ABDOMEN SOFT/NON TENDER. VSS. WILL CONTINUE TO MONITOR.
[2024-11-09 16:00] VITALS: BP 129/63; PULSE 99; RESP 18; TEMP 37; O2SAT 81
--- NOTE | 2024-11-09 16:36 | PC.NURSE ---
O2 SATURATION ON RA 81%. 2L O2 NASAL CANNULA APPLIED.
--- NOTE | 2024-11-09 16:49 | PC.NURSE ---
CARE PROVIDED BY EVETTE GAITAN [employer] WITH AHMET OLIVEROS SUPERVISION.
--- NOTE | 2024-11-09 18:02 | EXP.PN ---
Subjective *Date: 11/09/24 *Time: 18:02 Interval history: Patient doing well no concerns. Working with physical therapy. Exam Data for Last 24 hours Vital signs and Labs for Last 24 Hours: Temp Pulse Resp BP Pulse Ox O2 Del Method O2 Flow Rate 98.6 F 99 H 18 129/63 81 L Nasal Cannula 2 11/09/24 16:00 11/09/24 16:00 11/09/24 16:00 11/09/24 16:00 11/09/24 16:00 11/09/24 16:40 11/09/24 16:40 Laboratory Results - last 24 hr 11/09/24 06:30: WBC 10.3, RBC 3.86 L, Hgb 10.5 L, Hct 33.7 L, MCV 87.3, MCH 27.2, MCHC 31.2 L, RDW 15.8, Plt Count 286, MPV 11.1 H, Neut % (Auto) 71.8, Lymph % (Auto) 16.2, [place] % (Auto) 8.9, Eos % (Auto) 2.0, Baso % (Auto) 0.7, Neut # (Auto) 7.4, Lymph # (Auto) 1.7, [place] # (Auto) 0.9, Eos # (Auto) 0.2, Baso # (Auto) 0.1, Sodium 134 L, Potassium 4.2, Chloride 100, Carbon Dioxide 29, Anion Gap 9.2, BUN 16, Creatinine 0.70, Estimated Creat Clear 36, Estimated GFR 80, Est GFR ( Amer) 97, Glucose 92, Calcium 9.4 I & O for Last 24 hours: Intake & Output 11/06/24 11/07/24 11/08/24 11/09/24 23:59 23:59 23:59 23:59 Intake Total 1567 / 1567 850 / 850 615 / 615 Output Total 100 / 100 650 / 650 Balance 1467 / 1467 850 / 500 -35 / -35 Weight 49.668 kg 51.823 kg 51.82 kg 51.6 kg Microbiology Reports for the Last 24 Hours: Microbiology 11/06/24 21:48 Sputum - Expectorated Sputum Gram Stain - Final 11/06/24 21:48 Sputum - Expectorated Sputum Sputum Culture - Final Achromobacter species Constitutional Constitutional: no acute distress *Routine HEENT Exam Head: Present normocephalic Eye: Present EOMI and PERRL ENT: Present mucous membranes moist *Routine Neck Exam Neck: Present supple; Absent lymphadenopathy *Routine Respiratory Exam Respiratory: Present CTA bilaterally *Routine Cardiovascular Exam Cardiovascular: Present RRR *Routine Abdominal Exam Abdominal: Present soft and normoactive bowel sounds; Absent tenderness *Routine Extremities Exam Extremities: Absent cyanosis, clubbing or edema *Routine Skin Exam Skin: Present warm; Absent rash *Routine Neurological Exam Neurological: Present alert and oriented X3 Assessment and Plan *Assessment and plan (1) Pelvic hematoma in female: Status: Acute Category: Medical Code(s): N94.89 - Other specified conditions associated with female genital organs and menstrual cycle (2) Closed sacral fracture: Status: Acute Qualifiers: Encounter type: initial encounter Zone of sacrum fracture: unspecified portion of sacrum Qualified Code(s): S32.10XA - Unspecified fracture of sacrum, initial encounter for closed fracture Category: Medical Code(s): S32.10XA - Unspecified fracture of sacrum, initial encounter for closed fracture (3) Acute on chronic respiratory failure with hypoxia and hypercapnia: Status: Acute Category: Medical Code(s): J96.21 - Acute and chronic respiratory failure with hypoxia; J96.22 - Acute and chronic respiratory failure with hypercapnia (4) Leukocytosis: Status: Acute Qualifiers: Leukocytosis type: unspecified Qualified Code(s): D72.829 - Elevated white blood cell count, unspecified Category: Medical Code(s): D72.829 - Elevated white blood cell count, unspecified (5) Fall: Status: Acute Qualifiers: Encounter type: initial encounter Qualified Code(s): W19.XXXA - Unspecified fall, initial encounter Category: Medical Code(s): W19.XXXA - Unspecified fall, initial encounter Plan Funmilayo Bassett is a 79-year-old female who presented after a fall and was admitted for right pubic rami and sacral displaced fractures. #Fall #Right pubic rami, sacral displaced fractures #Right pelvic hematoma ? Orthopedic surgery consulted, advised fractures do not need interventions, and WBAT. ? Hematoma is present proximal to the fracture, no active extravasation on CTA. ? PT/OT consulted, recommending SNF. Discussed with case management, assisting with placement. Pending pre-auth from [facility]. #Acute on chronic hypoxic respiratory failure #Community-acquired pneumonia ? CXR shows bibasilar opacities, WBC improved from 15-10.3. ? Sputum culture growing Achromobacter sensitive to Zosyn, switched to Zosyn. Discontinue ceftriaxone, azithromycin. ? Required 2 L nasal cannula, baseline 2 L at night. Wean as tolerated. #COPD ? Stable. Continue home Bevespi. #Hypertension ? Hold home benazepril due to stable pressures. #GERD ? Continue home PPI. Full code DVT prophylaxis: Lovenox 40 mg
[2024-11-09 19:51] VITALS: BP 113/59; PULSE 80; RESP 17; TEMP 36.9; O2SAT 94
[2024-11-09 20:00] VITALS: PULSE 80; RESP 17; O2SAT 94
[2024-11-09] MEDS: BENZONATATE 100MG CAPSULE 100 MG PO (20:00)
[2024-11-09] MEDS: PANTOPRAZOLE 40MG TABLET 40 MG PO (20:00)
[2024-11-10] MEDS: PIPERCILLIN/TAZO 3.375 GM in 0.9 % SODIUM CHLORIDE 50 ML IV ×2 (02:10→09:00)
--- NOTE | 2024-11-10 03:45 | PC.NURSE ---
Patient is alert and oriented. She was observed to have eyes closed, respirations even and unlabored on 2 L of oxygen via nasal cannula, and no apparent distress for the majority of the night. The patient requested to remain resting up to the chair this shift, stating that she felt more comfortable there than laying in the bed. Legs have remained elevated, and extra pillows were provided for comfort. She complained of right hip pain once this shift and was given [place] per OCT for pain relief. Scheduled medications were administered as appropriately per OCT. Patient continues to report a cough (sound is loose) with sputum production; Tessalon Perles were given per OCT as well. Upon auscultation of her lungs, rhonchi was heard particularly in the middle lobe of the right lung; diminished lung sounds were heard throughout the left side. Auscultation of her heart and bowels were within normal findings. A purewick continues to be utilized for voiding needs. Since physical therapy treatments, the patient has been requiring at least x2 assistance + a walker during ambulation/transfers. Patient tolerates her diet but stated that her appetite has not been the best lately, but she is trying to push [myself] to eat. Vital signs stable. At this time, the patient is resting up to the chair without any further complaints. No new needs at this time. Call light within reach.
[2024-11-10 04:00] VITALS: BP 137/70; PULSE 78; RESP 17; TEMP 36.6; O2SAT 97; BMI 20.6
[2024-11-10] MEDS: GLYCOPYRROLATE IH (06:32)
[2024-11-10] MEDS: [UNRECOGNIZED DRUG - OTHER] IH (06:32)
[2024-11-10] MEDS: FORMOTEROL IH (06:32)
[2024-11-10] MEDS: HYDROCODONE/APAP 5/325 MG TABLET 1 TAB PO ×2 (06:35→12:02)
[2024-11-10 07:58] VITALS: BP 128/69; PULSE 83; RESP 18; TEMP 36.6; O2SAT 95
[2024-11-10 08:00] VITALS: O2SAT 2
[2024-11-10 08:02] LABS: Basophils # 0.1 K/mm3 (0-0.2); Basophils % 0.8 % (0.1-2.0); Eosinophils # 0.2 K/mm3 (0.0-0.4); Hematocrit 32.3 % (37.0-47.0); Hemoglobin 10.1 g/dL (12.2-16.2); Lymphocytes # 1.8 K/mm3 (0.7-4.5); Lymphocytes % 17.2 % (10-50); Mean Corpuscular HGB Conc 31.3 g/dL (31.8-35.4); Mean Corpuscular Hemoglobin 27.4 pg (27.0-31.2); Mean Corpuscular Volume 87.8 fl (81-99); Mean Platelet Volume 11.5 fl (7.4-10.4); Monocytes % 9.7 % (1.7-9.3); Neutrophils # 7.2 K/mm3 (1.8-7.8); Platelet Count 300 K/mm3 (142-424); Red Blood Count 3.68 M/mm3 (4.20-5.40); Red Cell Distribution Width 15.4 % (11.5-17.5); White Blood Count 10.3 K/mm3 (4.8-10.8)
[2024-11-10 08:07] LABS: Anion Gap 12.1 mEq/L (5-15); Blood Urea Nitrogen 20 mg/dl (7-17); Calcium 9.2 mg/dl (8.4-10.2); Carbon Dioxide 30 mmol/L (22.0-30.0); Chloride 97 mmol/L (98-107); Creatinine Clearance Estimated 35 mL/min (50-200); Estimated Glomerular Filt Rate 60 ml/min (>60); GFR (African American) 73 ML/MIN (>60); Glucose 101 mg/dl (74-100); Potassium 4.1 mmoL/L (3.5-5.1); Sodium 135 mmol/L (136-145)
[2024-11-10] MEDS: BENZONATATE 100MG CAPSULE 100 MG PO ×2 (09:00→12:02)
[2024-11-10] MEDS: ENOXAPARIN 40MG/0.4ML SYRINGE 40 MG SUBCUT (09:00)
--- NOTE | 2024-11-10 12:38 | P.DS_ITS ---
General Admission date:: 11/07/24 HPI HPI HPI: This is an 79-year-old female who has a past medical history significant for bronchiectasis, smoker, renal insufficiency, COPD, emphysema of the lung, hyponatremia, COPD, AL, GERD, cataract, and hypertension who presents with a chief complaint of pain post fall. Due to the patient's symptoms, she presented to the emergency room for evaluation. While in the emergency room, CTA of the chest was negative for any acute cardiopulmonary or intrathoracic process. CTA of the abdomen and pelvis revealed a displaced right sided pubic rami fracture, nondisplaced right sacral fracture, right pubic hemorrhage in addition to the right-sided pubic fracture-no evidence of extravasation to indicate active bleed, and no evidence of acute visceral injury.CT scan of the pelvis revealed displaced and comminuted fractures involving the right superior and inferior pubic rami, nondisplaced right sacral fracture, soft tissue injury/hemorrhage adjacent to the right-sided pubic rami fractures. The case was discussed with the orthopedic team (the attending and myself), and he highlighted these were nonoperative nonemergent findings. He recommended patient have physical therapy, pain management, a walker. Incidentally, patient was noted to be acutely hypoxic requiring supplemental oxygen. As a result, patient is being admitted for further management. During my evaluation of the patient, patient states he tripped over a toolbox and landed on tile ayanna. Post fall, patient had significant pain and inability to tolerate weightbearing. Patient states that she was recently e valuated by Dr. Castrejno where he had patient walk up and down the hallway. One can assume, that he was evaluating patient for potential supplemental oxygen as an outpatient. Review of the EMR shows patient performed a 6-minute walk test and during ambulation her oxygen saturation decreased to 85% requiring 2 L of oxygen by nasal cannula (this evaluation was performed on September 18, 2024). Review of [facility] director note on the same date shows to initiate supplemental oxygen at 2 L per nasal cannula. She is denying any lightheadedness or syncopal episode. Moreover, patient denies any chest pain, dyspnea, PND, orthopnea, nausea, vomiting, or diarrhea. Additional pertinent labs obtained including white blood cell count of 15.9, hemoglobin 11.9, neutrophils 80.9%, pCO2 of 54.1, carbon oxide 31, and BUN of 18. Hospital Course Hospital Course Hospital Course: Funmilayo Bassett is a 79-year-old female who presented after a fall and was admitted for right pubic rami and sacral displaced fractures. #Fall #Right pubic rami, sacral displaced fractures #Right pelvic hematoma ? Orthopedic surgery consulted, advised fractures do not need interventions, and WBAT. ? Hematoma is present proximal to the fracture, no active extravasation on CTA. ? PT/OT consulted, recommending SNF. [facility] graciously accepted patient for rehab. #Acute on chronic hypoxic respiratory failure #Community-acquired pneumonia ? CXR shows bibasilar opacities, WBC improved from 15-10.3. ? Sputum culture growing Achromobacter sensitive to Zosyn, switched to Zosyn. Discontinue ceftriaxone, azithromycin. ? Requiring 2 L nasal cannula, baseline 2 L at night. ? Will need 3 more days of Zosyn, ending 11/13/24. #COPD ? Stable. Continue home Bevespi. #Hypertension ? Discontinued home benazepril due to stable pressures. #GERD ? Continue home PPI. Total time spent on discharge: 32 minutes on chart review, counseling, documentation, and direct care with patient. Exam Data for Last 24 hours Vital signs and Labs for Last 24 Hours: Temp Pulse Resp BP Pulse Ox O2 Del Method O2 Flow Rate 97.8 F 83 18 128/69 2 L Nasal Cannula 2 11/10/24 07:58 11/10/24 07:58 11/10/24 07:58 11/10/24 07:58 11/10/24 08:00 11/10/24 09:00 11/10/24 09:00 Laboratory Results - last 24 hr 11/10/24 07:05: WBC 10.3, RBC 3.68 L, Hgb 10.1 L, Hct 32.3 L, MCV 87.8, MCH 27.4, MCHC 31.3 L, RDW 15.4, Plt Count 300, MPV 11.5 H, Neut % (Auto) 70.0, Lymph % (Auto) 17.2, [place] % (Auto) 9.7 H, Eos % (Auto) 2.0, Baso % (Auto) 0.8, Neut # (Auto) 7.2, Lymph # (Auto) 1.8, [place] # (Auto) 1.0, Eos # (Auto) 0.2, Baso # (Auto) 0.1, Sodium 135 L, Potassium 4.1, Chloride 97 L, Carbon Dioxide 30, Anion Gap 12.1, BUN 20 H, Creatinine 0.90 D, Estimated Creat Clear 35, Estimated GFR 60, Est GFR ( Amer) 73 D, Glucose 101 H, Calcium 9.2 I & O for Last 24 hours: Intake & Output 11/07/24 11/08/24 11/09/24 11/10/24 23:59 23:59 23:59 23:59 Intake Total 1567 / 1567 850 / 850 915 / 1035 700 / 700 Output Total 100 / 100 650 / 750 100 / 100 Balance 1467 / 1467 850 / 500 265 / 285 600 / 600 Weight 51.823 kg 51.82 kg 51.6 kg 50.8 kg Constitutional Constitutional: no acute distress *Routine HEENT Exam Head: Present normocephalic Eye: Present EOMI and PERRL ENT: Present mucous membranes moist *Routine Neck Exam Neck: Present supple; Absent lymphadenopathy *Routine Respiratory Exam Respiratory: Present CTA bilaterally *Routine Cardiovascular Exam Cardiovascular: Present RRR *Routine Abdominal Exam Abdominal: Present soft and normoactive bowel sounds; Absent tenderness *Routine Extremities Exam Extremities: Absent cyanosis, clubbing or edema *Routine Skin Exam Skin: Present warm; Absent rash Comments: Significant kyphosis. *Routine Neurological Exam Neurological: Present alert and oriented X3 Results Data Completed and Pending Labs on day of discharge: Labs from last 24 hours 11/10/24 07:05 WBC 10.3 RBC 3.68 L Hgb 10.1 L Hct 32.3 L MCV 87.8 MCH 27.4 MCHC 31.3 L RDW 15.4 Plt Count 300 MPV 11.5 H Neut % (Auto) 70.0 Lymph % (Auto) 17.2 [place] % (Auto) 9.7 H Eos % (Auto) 2.0 Baso % (Auto) 0.8 Neut # (Auto) 7.2 Lymph # (Auto) 1.8 [place] # (Auto) 1.0 Eos # (Auto) 0.2 Baso # (Auto) 0.1 Sodium 135 L Potassium 4.1 Chloride 97 L Carbon Dioxide 30 Anion Gap 12.1 BUN 20 H Creatinine 0.90 D Estimated Creat Clear 35 Estimated GFR 60 Est GFR ( Amer) 73 D Glucose 101 H Calcium 9.2 DS: Diagnosis Discharge Diagnosis (1) Pelvic hematoma in female: Status: Acute Code(s): N94.89 - Other specified conditions associated with female genital organs and menstrual cycle (2) Closed sacral fracture: Status: Acute Code(s): S32.10XA - Unspecified fracture of sacrum, initial encounter for closed fracture Qualifiers: Encounter type: initial encounter Zone of sacrum fracture: unspecified portion of sacrum Qualified Code(s): S32.10XA - Unspecified fracture of sacrum, initial encounter for closed fracture (3) Acute on chronic respiratory failure with hypoxia and hypercapnia: Status: Acute Code(s): J96.21 - Acute and chronic respiratory failure with hypoxia; J96.22 - Acute and chronic respiratory failure with hypercapnia (4) Leukocytosis: Status: Acute Code(s): D72.829 - Elevated white blood cell count, unspecified Qualifiers: Leukocytosis type: unspecified Qualified Code(s): D72.829 - Elevated white blood cell count, unspecified (5) Fall: Status: Acute Code(s): W19.XXXA - Unspecified fall, initial encounter Qualifiers: Encounter type: initial encounter Qualified Code(s): W19.XXXA - Unspecified fall, initial encounter Meds Home Medications and Allergies Home Medications ?Medication ?Instructions ?Recorded ?Confirmed ?Type acetaminophen 325 mg tablet 650 mg PO NEEDED PRN mild pain 02/07/18 11/06/24 History (Tylenol) or fever diphenhydramine HCl 25 mg tablet 25 mg PO BID #180 tabs 09/12/24 11/06/24 Rx (Benadryl Allergy) albuterol sulfate 90 mcg/actuation 2 inh inhalation Q4-6H PRN 09/17/24 11/06/24 Rx aerosol inhaler (Ventolin HFA) Shortness Of Breath Or Wheezing #8.5 grams glycopyrrolate 9 mcg-formoterol 2 puff inhalation BID 90 days 09/18/24 11/06/24 Rx 4.8 mcg HFA aerosol inhaler #10.7 grams (Bevespi Aerosphere) aspirin 81 mg chewable tablet 81 mg PO DAILY 11/06/24 11/06/24 History rabeprazole 20 mg tablet,delayed 20 mg PO DAILY 11/06/24 11/06/24 History release (AcipHex) fluticasone propionate 50 1 spray intranasal DAILY 11/07/24 11/06/24 History mcg/actuation nasal spray,suspension (Flonase Allergy Relief) cyanocobalamin (vitamin B-12) 1,000 mcg PO DAILY #30 caps 11/10/24 Rx 1,000 mcg capsule folic acid 1 mg tablet 1 mg PO DAILY #30 tabs 11/10/24 Rx hydrocodone 5 mg-acetaminophen 325 1 tab PO Q4HP PRN Mild To Moderate 11/10/24 Rx mg tablet Pain (1-6) 3 days #18 tabs piperacillin-tazobactam 3.375 gram 3.375 g IV Q8H 3 days #0 ea 11/10/24 Rx intravenous solution New Prescriptions to Start Prescriptions: cyanocobalamin (vitamin B-12) Norm Choudhary folic acid Norm Choudhary hydrocodone-acetaminophen Norm Choudhary Allergies Allergy/AdvReac Type Severity Reaction Status Date / Time No Known Allergies Allergy Verified 09/18/24 13:58 Discharge Plan Disposition Patient Disposition: [facility] Condition: Fair Discharge Order Discharge Orders: Discharge Order (Routine); Ordered 11/10/24 Ordered By: Norm Choudhary Follow up Plan Follow up with: Alexander Burnham DO [Staff Physician] - 11/25/24 Prescriptions/Medication Reconciliation: New hydrocodone-acetaminophen 5-325 mg Tablet 1 tab PO Q4HP PRN (Reason: Mild To Moderate Pain (1-6)) 3 Days Qty: 18 0RF piperacillin-tazobactam 3.375 gram Recon Soln 3.375 g IV Q8H 3 Days Qty: 0 0RF cyanocobalamin (vitamin B-12) 1,000 mcg capsule 1,000 mcg PO DAILY Qty: 30 0RF folic acid 1 mg tablet 1 mg PO DAILY Qty: 30 0RF Continued Bevespi Aerosphere 9-4.8 mcg HFA aerosol inhaler 2 puff inhalation BID 90 Days Qty: 10.7 3RF albuterol sulfate [Ventolin HFA] 90 mcg/actuation HFA aerosol inhaler 2 inh inhalation Q4-6H PRN (Reason: Shortness Of Breath Or Wheezing) Qty: 8.5 1RF diphenhydramine HCl [Benadryl Allergy] 25 mg tablet 25 mg PO BID Qty: 180 1RF acetaminophen [Tylenol] 325 MG tablet 650 mg PO NEEDED PRN (Reason: mild pain or fever) rabeprazole [AcipHex] 20 mg tablet,delayed release (DR/EC) 20 mg PO DAILY aspirin 81 mg tablet,chewable 81 mg PO DAILY fluticasone propionate [Flonase Allergy Relief] 50 mcg/actuation sp ray,suspension 1 spray intranasal DAILY Discontinued benazepril 5 mg tablet 2.5 mg PO DAILY Problem Reconciliation Problems Reviewed?: Yes Patient Discharge Instructions Patient Instructions: DI for Pelvic Fracture, How to Prevent Falls, DI for Respiratory Failure Print Language: Azerbaijani Providers Primary Care Provider: Catherine Stanton Admit Provider: Norm Choudhary Attending Provider: Norm Choudhary
[2024-11-10 14:19] VITALS: O2SAT 88
--- NOTE | 2024-11-10 16:35 | PC.NURSE ---
attempted to call report to [facility] beginning at 1200. no answer. called the facility 4 times. left multiple messages requesting a call back to given report. unable to get ahold of [facility] at this time. will continue to call and attempt to give report. family aware and frustrated. informed of attempts to contact [facility]
--- OUTSIDE RECORDS SUMMARY | 2024-11-21 17:02 | XMS_ITS ---
Author Organization Unknown Allergies, Adverse Reactions and Alerts Date IsAllergic OnsetDate Allergen Reaction Type Severity Chance rgyCode Legacyallergictoid ReactionCode ReactionCodeSystemID 12/31 00:00 :00 1 Bactrim DS rash, nausea Aller gy [id number] 12/31 00:00 :00 1 Singulair palpitati ons Side Effec ts [id number] 12/31 00:00 :00 1 Aspirin [id number] 12/31 00:00 :00 1 Tran in [id number]
--- OUTSIDE RECORDS SUMMARY | 2024-11-21 17:02 | XMS_ITS ---
Laboratory report Created on: October 05, 2024 ROSANA WALKER : 1945 Sex: Female Author Organization Unknown PROBLEMS Problems List Code Description RESULTS Laboratory Orders Date Order Code Test 2024-09-18 [id number] AEROBE ID + SUSC EPT Laboratory Results Date LOINC Test Value Unit Reference Range Interpre tation 2024-09-18 [id number] AEROBE ID + SUSCEPT FINAL A 2024-09-18 [id number] RESULT 1 BACNBA A
--- OUTSIDE RECORDS SUMMARY | 2024-11-21 17:02 | XMS_ITS ---
Laboratory report Created on: October 02, 2024 ROSANA WALKER : 1945 Sex: Female Author Organization Unknown PROBLEMS Problems List Code Description RESULTS Laboratory Orders Date Order Code Test 2024-09-18 [id number] AEROBE ID + SUSC EPT Laboratory Results Date LOINC Test Value Unit Reference Range Interpre tation 2024-09-18 [id number] AEROBE ID + SUSCEPT FINAL 2024-09-18 [id number] RESULT 1 FR
== END 2024-11-10 16:57 | DRG 535 ==
LOC: ER 16:26 → 2ND 17:44
PROVIDERS: Nurse Practitioner Family; Physician Assistant; Admitting Provider Student in an Organized Health Care Education/Training Program; Emergency Provider Emergency Medicine; PCP Family Medicine; Visit Provider Student in an Organized Health Care Education/Training Program
DX: S32.591A Other specified fracture of right pubis, initial encounter for closed fracture (principal); S32.10XA Unspecified fracture of sacrum, initial encounter for closed fracture; J15.69 Pneumonia due to other Gram-negative bacteria; J96.21 Acute and chronic respiratory failure with hypoxia; Z16.19 Resistance to other specified beta lactam antibiotics; Z16.23 Resistance to quinolones and fluoroquinolones; Z16.24 Resistance to multiple antibiotics; Z16.29 Resistance to other single specified antibiotic; J47.0 Bronchiectasis with acute lower respiratory infection; F17.210 Nicotine dependence, cigarettes, uncomplicated; K21.9 Gastro-esophageal reflux disease without esophagitis; W01.0XXA Fall on same level from slipping, tripping and stumbling without subsequent striking against object, initial encounter; I95.9 Hypotension, unspecified; Y93.01 Activity, walking, marching and hiking; D72.829 Elevated white blood cell count, unspecified; I25.2 Old myocardial infarction; Y99.8 Other external cause status; S30.0XXA Contusion of lower back and pelvis, initial encounter; Y92.009 Unspecified place in unspecified non-institutional (private) residence as the place of occurrence of the external cause; Z80.9 Family history of malignant neoplasm, unspecified; Z83.3 Family history of diabetes mellitus; Z82.49 Family history of ischemic heart disease and other diseases of the circulatory system; Z82.3 Family history of stroke; Z79.51 Long term (current) use of inhaled steroids; Z79.899 Other long term (current) drug therapy; Z79.82 Long term (current) use of aspirin
CPT/HCPCS: 36415; 70450; 71045; 71275; 72125; 72128; 72131; 72192; 73552; 73562; 74174; 80048; 80053; 82607; 82746; 82803; 84439; 84443; 85007; 85025; 87070; 87077; 87186; 87205; 87636; 94640; 97110; 97163; 97166; 97530; 97535; 99291; J0696; J1650; J2543; J2919; J7620; Q9967

== ENCOUNTER 2025-01-09 14:22 | Outpatient (CLI) | payer MEDICARE, BC, SELFPAY | END 2025-01-09 23:59 | disposition home or self-care (01) | LOC: LAB 14:23 | PROVIDERS: PCP Family Medicine; Visit Provider Internal Medicine Pulmonary Disease | DX: J47.9 Bronchiectasis, uncomplicated (principal) | CPT/HCPCS: 87070; 87077; 87205 ==

== ENCOUNTER 2025-03-03 12:43 | Outpatient (CLI) | payer MEDICARE, BC, SELFPAY ==
--- OUTSIDE RECORDS SUMMARY | 2024-08-20 10:00 | XMS_ITS | Continuity of Care Document ---
Author Organization [facility] Address [address] [address] Phone Care Team Providers Care Commissary Superintendent Name Role Phone Miriam Mendes OD Unavailable Unavailable Allergies, Adverse Reactions, Alerts Substance Reaction Status Criticality trimethoprim Rash(mild)Rash(mild) Active No Info rmation sulfamethoxazole Rash(mild)Rash(mild) Active No Information Medications Medication Instructions Dosage Effective Dates (start - stop) Status Comments Vitamin D3 10 mcg (400 unit) capsule take 1 capsule by oral route every day 1 capsule - Active Ventolin HFA 90 mcg/actuation aerosol inhaler inhale 2 puff by inhalation route every 4 - 6 hours as needed as needed 180 MCG - Active Tylenol 325 mg capsule take 2 capsule by oral route 3 times every bedtime as needed 2 capsule - Active Flovent HFA 44 mcg/actuation aerosol inhaler inhale 2 puff by inhalation route 2 times every day as needed - Active Delsym Cough-Cold NightTime 12.5 mg-5 mg-325 mg/10 mL oral liquid Use at night as directed as needed - Active Mucinex 600 mg tablet, extended release take 1 tablet by oral route every 12 hours as needed 600 MG - Active aspirin 81 mg tablet,delayed release take 1 tablet by oral route every day 81 MG - Active benazepril 20 mg-hydrochlorothiazi de 12.5 mg tablet take 1 tablet by oral route every day 1.00 tablet - Active rabeprazole 20 mg tablet,delayed release take 1 tablet by oral route every day swallowing whole. Do not crush, chew and/or divide. 20 MG - Active Procedures Procedure Date Ophthal DX Image Post Retina I And R Uni Or Bi Eye Exam Established Patient Comprehensi ve 1 Or More Visits Ophthal DX Image Post Retina I And R Uni Or Bi Eye Exam Established Patient Comprehensi ve 1 Or More Visits OFFICE/OUTPATIENT VISIT, EST Post Op Visit Cataract Post Op Visit Cataract Post Op Visit Cataract Extracapsular Cataract Removal With IOl Manual Or Chef Teacher Post Op Visit Cataract Post Op Visit Cataract Extracapsular Cataract Removal With IOl Manual Or Chef Teacher Ophthalmic Biometry W Iol Calculation Un ilateral OFFICE/OUTPATIENT VISIT, NEW Ophthal DX Image Post Retina I And R Uni Or Bi Advance Directives Directive Yes / No Effective Date File Name No Information Encounters Encounter Description Practice Location Reason(s) For Visit Diagnoses Date Provider Providers Copied on Encounter [facility], [address] [place], [address], [place] tel:[phone] [facility] annual eye exam (chief complaint) Macular RPE mottlingPresen ce of intraocular lensDermatocha lasis of both upper eyelidsDry eye syndrome of bilateral lacrimal glandsMacular pigment epithelial detachment of right eye 5 Cinthya Pineda. [facility] [place], [place], [id number] , [place]. tel:[phone] Referring Provider: Miriam Mcknight, [address] [place], [address] . tel:[phone] [facility], [address] [place], [address], [place] tel:[phone] [facility] MGD (chief complaint) Macular RPE mottlingPresen ce of intraocular lensDermatocha lasis of both upper eyelidsDry eye 3 Cinthya Pineda. [facility] [place], [place], [id number] , [place]. tel:[phone] Referring Provider: Miriam Mcknight, [address] [place], [address] . tel:[phone] OFFICE/OUTPA TIENT VISIT, EST [facility], [address] [place], [address], [place] tel: [phone] [facility] comprehensive eye exam (chief complaint) MGD of left eye, upper and lower eyelidsMGD of right eye, upper and lower eyelidsPresenc e of intraocular lensIntermedia te stage nonexudative age-related macular degeneration of both eyes 0 Isaiah Johnson. [address] [place] [address], [address], [place], [place], [id number] , [place]. tel: [phone] Referring Provider: Alex Gan, [address] [place] [address] [address], [place], [address] . tel:[phone] [facility], [address] [place], [address], [place] tel: [phone] [facility] 1 mo s/p phaco (chief complaint) Aftercare following surgeryPresenc e of intraocular lens Apr-2 4-201 9 Simpson Michael. [address] [place], [place], [id number] . tel:[phone] Referring Provider: Kaya Kohler, Mian Hansen, [place], [address]. tel:[phone] [facility], [address] [place], [address], [place] tel:[phone] [facility] 2 wk s/p phaco (chief complaint) Aftercare following surgeryPresenc e of intraocular lens Apr-0 3-201 9 Simpson Michael. [address] [place], [place], [id number] . tel:[phone] Referring Provider: Kaya Kohler, Mian Hansen, [place], [address]. tel:[phone] [facility], [address] [place], [address], [place] [phone] [facility] 1 day phaco f/u (chief complaint) Aftercare following surgeryPresenc e of intraocular lens Oct-2 2-201 9 [place] Ally. [address] [place], [address], [place]. tel:[phone] Referring Provider: Kaya Kohler, Mian Hansen, [place], [address]. tel:[phone] [facility], [address] [place], [address], [place] tel:[phone] [facility] Combined forms of age-related cataract, left eye Oct-2 1- 9 Simpson Michael. [address] [place], [place], [id number] . tel:[phone] Referring Provider: Kaya Kohler, Mian Hansen, [place], [address]. tel:[phone] [facility], [address] [place], [address], [place] tel:[phone] [facility] [address] 1 wk s/p phaco (chief complaint) Aftercare following surgeryPresenc e of intraocular lens Oct- 3 9 Simpson Michael. [address] [place], [place], [id number] . tel:[phone] Referring Provider: Kaya Kohler, Mian Hansen, [place], [address]. tel:[phone] [facility], [address] [place], [address], [place] tel:[phone] [facility] [address] 1 day s/p phaco (chief complaint) Aftercare following surgeryPresenc e of intraocular lens Oct-0 8 9 Simpson Michael. [address] [place], [place], [id number] . tel:[phone] Referring Provider: Kaya Kohler, Mian Hansen, [place], [address]. tel:[phone] [facility], [address] [place], [address], [place] tel:[phone] [facility] Combined forms of age-related cataract, right eye 9 Simpson Michael. [address] [place], [place], [id number] . tel:[phone] Referring Provider: Kaya Kohler, Mian Hansen, [place], [address]. tel:[phone] [facility], [address] [place], [address], [place] tel:[phone] [facility] [place] Combined forms of age-related cataract, bilateral 9 Simpson Michael. [address] [place], [place], [id number] . tel:[phone] Referring Provider: Kaya Kohler, Mian Hansen, [place], [address]. tel:[phone] OFFICE/OUTPA TIENT VISIT, [facility], [address] [place], [address], [place] tel:[phone] [facility] [address] Cat Eval (chief complaint) Combined forms of age-related cataract of both eyesHistory of refractive surgeryInterme diate stage nonexudative age-related macular degeneration of both eyes Simpson Michael. [address] [place], [place], [id number] . tel:[phone] Referring Provider: Kaya Kohler, Mian Hansen, [place], [address]. tel:[phone] Family History Family Member Type Diagnosis Age At Onset Mother Problem (finding) cataract Mother Problem (finding) cancer of colon Problem No family histor y of Macular degeneration Mother Problem (finding) glaucoma Problem (finding) No family history of Di abetes mellitus Mother Problem (finding) Retinal disease Problem No family history of Retinal disease Mother Problem (finding) hypertension Payers Payer name Insurance type Covered alliance party ID Authoriza tion(s) Medicare [place] MB [id number] Rigo Arana Bs Local [facility] BL [id number] Social History Type Description Quantity Date Captured Comments Alcohol Use Details 2 glasses occasionally Caffeine Use Details No 1 cup per day Tobacco Use Status Light cigarette smoker (1-9 cigs/day) Smoking Status Light tobacco smoker Smoking Tobacco Use Details Cigarette: Age Started: 45 Cigarette: 8 Cigarettes per day Sex Female Chief Complaint And Reason For Visit From encounter dated '08/20/2024 14:00'. annual eye exam (chief complaint). Description: The 79 year old patient presents for evaluation of annual eye exam in the right and left eyes. Pt states vision is stable. Pt states having light sensitivity. Pt denies any pain, discomfort, double vision, flashes of light, or floaters OU, no new complaints.Meds: Ats as needed Reason For Referral Reason For Referral No Information Plan Of Treatment Date Type Action Status Goal Tobacco cessation counseling completed Goal Tobacco cessation counseling completed Goal Tobacco cessation counseling completed Goal Tobacco cessation counseling completed History Of Present Illness Encounter Date Complaint History Of Prese nt Illness annual eye exam The 79 year old patient presents for evaluation of annual eye exam in the right and left eyes. Pt states vision is stable. Pt states having light sensitivity. Pt denies any pain, discomfort, double vision, flashes of light, or floaters OU, no new complaints.Meds: Ats as needed MGD The 78 year old female presents for evaluation of MGD in the right and left eyes. Pt VA stable since last OV OU, no new complaints OU. Pt states eyes water a lot, especially at night when raining and she's driving. Pt denies any pain, discomfort, double vision, flashes of light, or floaters OU, no new complaints. Meds: AT PRN OU comprehensive eye exam The 75 ye ar old female presents for evaluation of comprehensive eye exam in the right and left eyes (PCIOL both eyes and Intermediate stage non-exudative macular degeneration per [facility]). Patient states vision has been stable . Patient states that she is still light sensitive, mostly in the sun, she also states that the left eye sometimes feels weird . Patient denies eyes pain, flashes and floaters. Patient using AT prn. 1 mo s/p phaco The 73 year old female presents for evaluation of 1 mo s/p phaco in the right and left eyes. The condition is described as no noticeable vision changes. Patient denies eye pain. 2 wk s/p phaco The 73 year old female presents for evaluation of 2 wk s/p phaco in the left eye. The condition is described as no noticeable vision changes OS but still has a flash of light in the am OD as before. Patient denies eye pain and any drop problems and is using drops correctly. 1 day phaco f/u The 73 year old female presents for a 1 day phaco f/u in the left eye. The onset was progressive OU. The vision is improving OS. Patient denies eye pain, flashes, floaters and any drop problems and is using drops correctly. 1 wk s/p phaco The 73 year old female presents for evaluation of 1 wk s/p phaco in the right eye. The condition is described as no noticeable vision changes but is having some photophobia. Patient denies eye pain and any drop problems and is using drops correctly. 1 day s/p phaco The 73 year old female presents for evaluation of 1 day s/p phaco in the right eye. The condition is improving OD. Patient denies eye pain and any drop problems and is using drops correctly. Cat Eval The 73 year old female presents for evaluation of Cat Eval in the right and left eyes. It affects decrease in distance vision. The condition is described as glare at night when she drive - doesn't drive often. Pt c/o trouble reading traffic signs as well. H/o LASIK in 1998. Family h/o glaucoma and lid CA in her mother. Patient denies eye pain. Functional Status Date Functional Assessmen t No Information Instructions Date Instruction Additional Infor juan Impression/Plan 1 year CEE with BN Related to P resence of intraocular lens Rachid-14-2023 Impression/Plan Impression/Plan Impression/Plan Impression/Plan Impression/Plan Impression/Plan Impression/Plan Impression/Plan Assessments Type Assessment Date assessment Macular RPE mottling assessment Presence of intraocular lens Aug assessment Dermatochalasis of both upper ey elids assessment Dry eye syndrome of bilateral la crimal glands assessment Macular pigment epithelial detac hment of right eye Patient Care Teams Name Effective Dates (start - stop) Status Members No Information
--- OUTSIDE RECORDS SUMMARY | 2025-03-03 12:48 | XMS_ITS | Clinical Summary ---
Author Organization [facility] Address [address] [facility] [place] [address] Phone Care Team Providers Care Sap Hana Developer Name Role Phone Unavailable Primary Care Provider Unavailabl e Allergies No known active allergies Medications VENTOLIN HFA 90 mcg/actuation Inhl HFA Aerosol Inhaler USE 2 PUFF(S) 4 TIMES A DAY AND NEEDED 5 08/15/2018 Active aspirin 81 mg Oral Tablet, Delayed Release (E.C.) Take 81 mg by mouth daily. 2 08/21/2018 Active fluticasone (FLONASE) 50 mcg/actuation Nasl [place], Suspension 1 [place] by Nasal route daily. 08/08/2018 Active moxifloxacin (VIGAMOX) 0.5 % Opht Drops 08/30/2018 Active prednisoLONE acetate (PRED FORTE) 1 % Opht Drops, Suspension 08/30/2018 Active RABEprazole (ACIPHEX) 20 mg Oral Tablet, Delayed Release (E.C.) Take 20 mg by mouth daily. 08/08/2018 Active benazepril-hydr ochlorthiazide (LOTENSIN HCT) 5-6.25 mg Oral Tablet Take 0.5 Tabs by mouth daily. Active zoledronic acid (RECLAST) 5 mg/100 mL IV Piggyback Inject 5 mg into the vein once. Every January Active UNABLE TO FIND Take 1 Tab by mouth as needed. Med Name: Mucous Relief for sinus, coughing Active Surgical History Surgery Date Site/Laterality Comments TONSILLECTOMY 08/14/1945 - 08/13/1946 THYROID SURGERY parathyroid surgery COLONOSCOPY UPPER GASTROINTESTINAL ENDOSCOPY CATARACT REMOVAL 10/18/2018 Right RIGHT EYE CATARACT EXTRACTION WITH PHACOEMULSIFICATION AND INTRAOCULAR LENS; Surgeon: Michael Simpson MD; Location: [facility]; Service: Ophthalmology Medical devices from this surgery are in the Medical Devices section. CATARACT REMOVAL 11/01/2018 Left LEFT EYE CATARACT EXTRACTION WITH PHACOEMULSIFICATION AND INTRAOCULAR LENS; Surgeon: Michael Simpson MD; Location: [facility]; Service: Ophthalmology Medical devices from this surgery are in the Medical Devices section. Medical History Medical History Date Comments COPD (chronic obstructive pu lmonary disease) ([facility]) Shortness of breath DECKER (dyspnea on exertion) Exercise involving walking daily Bronchitis, chronic ([facility]) since very small Smoker 1/2 PPD since ag e 38 Hypertension [place] (myocardial infarction) ([facility]) 2011 light heart attack , they did nothing stayed over night in hospital Heartburn Osteoporosis Wears glasses reading glasses Sinus infection 10/16/2018 has sinus infect ion, PCP told her to take mucous relief for this, instructed pt to notify Dr Simpson Family History Medical History Relation Name Comments Arthritis Mother Cancer Mother Heart Disease Mother High Blood Pressure Mother High Cholesterol Mother Osteoporosis Mother Anesth Problems Neg Hx Relation Name Status Comments Father unknown Mother Alive Social History Tobacco Use Types Packs/Day Years Used Date Smoking Tobacco: Every Day Cigarettes 0.5 42.6 Started: 08/14/1982 Smokeless Tobacco: Never Alcohol Use Standard Drinks/Week Comments Yes 0 (1 standard drink = 0.6 oz pur e alcohol) occ Comments No Sex and Gender Information Value Date Recorded Sex Assigned at Not on file Legal Sex Female 12:59 AM EDT Gender Identity Not on file Sexual Orientation Not on file Obstetrics History Para Term AB IAB SAB Ectopic Multiple Livin g Live Births 1 1 1 Date Outcome GA Total Labor Labor/2nd/3rd Weight Sex Type Anes PTL Lis A1 A5 Name Clin Term Last Filed Vital Signs Vital Sign Reading Time Taken Comments Blood Pressure 131/79 11/01/2018 1:26 PM EDT Pulse 69 11/01/2018 1:26 PM EDT Temperature 36.7 C (98 F) 11/01/2018 1:26 PM EDT Respiratory Rate 16 11/01/2018 1:26 PM EDT Oxygen Saturation 96% 11/01/2018 1:26 PM EDT Inhaled Oxygen Concentration - - Weight 51.3 kg (113 lb 1 oz) 11/01/2018 11:52 AM EDT Height 154.9 cm (5' 1 ) 11/01/2018 11:52 AM EDT Body Mass Index 21.36 11/01/2018 11:52 AM EDT Plan of Treatment Health Maintenance Due Date Last Done Comments Wellness Exam Medicare 1948 DTaP/TDaP/Td (1 - Tdap) 1962 Pneumococcal Vaccine 50+ (1 of 1 - PCV) 1993 Zoster (1 of 2) 1993 Bone Density Screening 01/08/2008 RSV or 60+ (1 - 1-d ose 75+ series) 2018 COVID-19 Vaccine ( - 2023-2 5 season) 2024 Influenza Vaccine (#1) 2025 Hepatitis B Vaccine Aged Out No longe r eligible based on patient's age to complete this topic Meningococcal B Vaccine Aged Out No l onger eligible based on patient's age to complete this topic Medical Devices Implanted Type Area Drafting Technician Device Identifier Shelf Expiration Date Model / Serial / Lot Lens Intraocular Preloaded 19.5 Diopter - [id number] Implanted:Qty: 1 on 10/18/2018 by Michael Simpson MD at [facility] Right: Eye [employer]:SURG 05/13/2021 [id number] / [id number] / [id number] Lens Intraocular Preloaded 20.5 Diopter - [id number] Implanted:Qty: 1 on 11/01/2018 by Michael Simpson MD at [facility] Left: Eye [employer]:SURG 05/13/2021 [id number] / [id number] / Insurance MEDICARE [place] PART A AND B [facility]
--- OUTSIDE RECORDS SUMMARY | 2025-03-03 12:48 | XMS_ITS | Clinical Summary ---
Author Organization Healthcare Address [address] [place] [address] Care Team Providers Care Storage Worker Name Role Phone Des Carreno MD Primary Care Provider [phone] Family History Medical History Relation Name Comments Colon cancer Mother Conversions - Other Mother malignan t neoplasm of female breast Relation Name Status Comments Mother Social History Tobacco Use Types Packs/Day Years Used Date Smoking Tobacco: Every Day Alcohol Use Standard Drinks/Week Comments No 0 (1 standard drink = 0.6 oz pur e alcohol) Comments Unknown Sex and Gender Information Value Date Recorded Sex Assigned at Not on file Legal Sex Female 6:44 PM EDT Gender Identity Not on file Sexual Orientation Not on file Last Filed Vital Signs Vital Sign Reading Time Taken Comments Blood Pressure - - Pulse - - Temperature - - Respiratory Rate - - Oxygen Saturation - - Inhaled Oxygen Concentration - - Weight 533 kg (1175 lb 2.6 oz) 03/14/2017 9:11 A M EDT Height 158.8 cm (5' 2.5 ) 02/22/2016 1:41 PM EDT Body Mass Index 211.51 02/22/2016 1:41 PM EDT Plan of Treatment Not on file Care Teams Storage Worker Relationship Specialty Start Date End Date Des Carreno MD [address] [place] [id number] PCP - General 12/25/20
--- OUTSIDE RECORDS SUMMARY | 2025-03-03 12:48 | XMS_ITS | Encounter Summary ---
Author Organization [place] [address] Care Team Providers Care Coremaker Machine Name Role Phone Unavailable Primary Care Provider Unavailabl e Encounter Details Date Type Department Care Team (Late st Contact Info) Description 09/14/2010 Orders Only [facility] [address] [place] [address] Luiz Barbour MD [address] [place] [address] Social History Tobacco Use Types Packs/Day Years Used Date Smoking Tobacco: Never Assessed Comments Unknown Sex and Gender Information Value Date Recorded Sex Assigned at Not on file Legal Sex Female 12:59 AM EDT Gender Identity Not on file Sexual Orientation Not on file documented as of this encounter Plan of Treatment Not on file documented as of this encounter Procedures Procedure Name Priority Date/Time Associated Diagnosis Comments ECHO - HISTORICAL Routine 09/14/2010 12: 00 AM EST documented in this encounter Results * ECHO - HISTORICAL (09/14/2010 12:00 AM EST) Anatomical Region Laterality Modality Other 09/14/2010 Narrative 09/21/2011 11:20 AM EST ORIGINAL EMBEDDED PDF DOCUMENT WAS FILED IN ERROR. THE ORIGINAL DOCUMENT WAS REPLACED WITH A PLACEHOLDER DOCUMENT. Replacement occurred on 11/25/2011 Luiz Barbour MD IM ECHO ORDERABLES Final Result documented in this encounter Visit Diagnoses Not on filedocumented in this encounter
--- NOTE | 2025-03-03 13:00 | CA_ITS ---
APPROVED REPORT EXAM: Comprehensive 2D, Doppler, and color-flow Echocardiogram Wood Processing Worker: Teresa Silva RVT Ht: 5 ft 2 in Wt: 111lbs BSA: 1.49 BP: 118/78 mmHg Indications: SHORTNESS OF BREATH,ATRIAL DYSRHYTHMIA 2D Dimensions IVSd 1.18 cm F: 0.6-1.0 LVEF (Visual) 52.80 % PWd 1.66 cm F: 0.6 - 1.0 LA Volume 38.80 mL LVDd 3.30 cm F: 3.9 - 5.3 LA Volume Index 26.04 mL/m2 (M/F) 16-34 LVDs 2.43 cm F: 2.2 - 3.5 EF AP4 57.10 % Left Atrium 4.20 cm F: 2.7 - 3.8 GL Strain -14.8 % RVID Base (AP4) 2.13 cm (M/F) 2.5-4.1 LVOT 2.17 cm (M/F) 1.5-2.5 M-Mode Dimensions LVDd 3.30 cm (3.5-5.7) Ao Diam 3.05 cm (2.0-3.7) LVDs 2.43 cm (3.5-5.7) IVSd 1.18 cm (0.6-1.1) PWd 1.66 cm (0.6-1.1) FS 26.40% TAPSE 2.01 (<1.7) LV Diastology E Decel Time 233 (160-240 msec) E/A Ratio 0.7 MED E' 5.8 (>= 7 cm/sec) E'/MED E' Ratio 11.98 (<= 14) LAT E' 5.0 (>= 10 cm/sec) E/LAT E' Ratio 13.90 (<= 14) Aortic Valve LVOT Max 105.0 (70-110 cm/s) SERGIO Index 2.10 cm2/m2 LVOT VTI 19.80 cm AoV Peak Art. 127.0 (50-130 cm/s) AI PHT 1175.00 ms AO Peak GR. 6.10 mmHg AO Mean GR. 3.50 (<5 mmHg) AO VTI 23.4 (18-25 cm) SERGIO (VTI) 3.13 (2.5-4.5 cm2) Mitral Valve MV E Max Art. 69.0 (40-130 cm/s) MV A Velocity 93.0 (40-130 cm/s) E/A Ratio 0.75 MV Decel. Time 233 (160-240 ms) Tricuspid Valve TR P. Velocity 270.00 cm/s RAP Estimate 10.00 mmHg RVSP 39.10 mmHg Left Ventricle The left ventricle is normal size. The left ventricular systolic function is normal. The left ventricular ejection fraction is within the normal range. There is increased LV wall thickness. There is normal LV segmental wall motion. Diastolic function is indeterminate. LVEF is 55%. Right Ventricle The right ventricle is normal size. The right ventricular systolic function is normal. Atria Left atrium is moderately dilated. Right atrium is mildly dilated. There is no Doppler evidence of interatrial shunt. Aortic Valve The aortic valve is mildly thickened. There is no aortic valvular stenosis. Moderate aortic regurgitation. Mitral Valve The mitral valve is mildly thickened. No evidence of mitral valve stenosis. Moderate mitral regurgitation. Tricuspid Valve Tricuspid valve is grossly normal in structure and function. Mild tricuspid regurgitation. RVSP is 20-25 mmHg. Pulmonic Valve The pulmonary valve is normal in structure. Trace pulmonic regurgitation. Great Vessels The aortic root is normal in size. IVC is normal in size and collapses >50% with inspiration. Pericardium There is no pericardial effusion. Other Information Study Quality: Fair Conclusion Normal biventricular systolic function. Biatrial dilation. Moderate AI. Moderate MR. Mild TR. Electronically signed by : Lashay Bains MD 03/05/2025 13:39:15
== END 2025-03-03 23:59 | disposition home or self-care (01) ==
LOC: RT 12:46
PROVIDERS: PCP Family Medicine; Visit Provider Physician Assistant
DX: I08.3 Combined rheumatic disorders of mitral, aortic and tricuspid valves (principal); I49.8 Other specified cardiac arrhythmias
CPT/HCPCS: 93306

== ENCOUNTER 2025-05-06 12:15 | Outpatient (CLI) | payer MEDICARE, BC, SELFPAY ==
--- OUTSIDE RECORDS SUMMARY | 2025-05-06 12:18 | XMS_ITS | Encounter Summary ---
Author Organization [place] [address] Care Team Providers Care Patient Attendant Name Role Phone Unavailable Primary Care Provider Unavailabl e Encounter Details Date Type Department Care Team (Late st Contact Info) Description 09/14/2010 Orders Only [facility] [address] [place] [address] Luiz Barbour MD [address] [place] [address] Social History Tobacco Use Types Packs/Day Years [...]
--- OUTSIDE RECORDS SUMMARY | 2025-05-06 12:18 | XMS_ITS | Clinical Summary ---
Author Organization [facility] Address [address] [facility] [place] [address] Phone Care Team Providers Care Dough Catcher Name Role Phone Unavailable Primary Care Provider Unavailabl e Allergies No known active allergies Medications VENTOLIN HFA 90 mcg/actuation Inhl HFA Aerosol Inhaler USE 2 PUFF(S) 4 TIMES A DAY AND NEEDED 5 08/15/2018 Active aspirin 81 mg Oral Tablet, Delayed Release (E.C.) Take 81 mg by mouth daily. 2 08/21/2018 Active fluticasone (FLONASE) 50 mcg/actuation Nasl [place], Suspension 1 [place] by Nasal route daily. 08/08/2018 Active moxifloxacin [...] INTRAOCULAR LENS; Surgeon: Michael Simpson MD; Location: [facility]; Service: Ophthalmology Medical devices from this surgery are in the Medical Devices section. CATARACT REMOVAL 11/01/2018 Left LEFT EYE CATARACT EXTRACTION WITH PHACOEMULSIFICATION AND INTRAOCULAR LENS; Surgeon: Michael Simpson MD; Location: [facility]; Service: Ophthalmology Medical devices from this surgery are in the Medical Devices section. Medical History Medical History Date Comments COPD (chronic obstructive pu lmonary disease) ([facility]) Shortness of breath DECKER (dyspnea on exertion) Exercise involving walking daily Bronchitis, chronic ([facility]) since very small Smoker 1/2 PPD since ag e 38 Hypertension [place] (myocardial infarction) ([facility]) 2011 light heart attack , they did [...] Date Smoking Tobacco: Every Day Cigarettes 0.5 42.7 Started: 08/14/1982 Smokeless Tobacco: Never Alcohol Use [...] COVID-19 Vaccine ( - 2023-2 5 season) 2025 Influenza Vaccine (#1) 2025 Hepatitis B Vaccine Aged Out No longe r eligible based on patient's age to complete this topic Meningococcal B Vaccine Aged Out No l onger eligible based on patient's age to complete this topic Medical Devices Implanted Type Area Construction Lineman Device Identifier Shelf Expiration Date Model / Serial / Lot Lens Intraocular Preloaded 19.5 Diopter - [id number] Implanted:Qty: 1 on 10/18/2018 by Michael Simpson MD at [facility] Right: Eye [facility]ACIE [facility]:SURG 05/13/2021 AU00T0.195 / [id number] / [id number] Lens Intraocular Preloaded 20.5 Diopter - [id number] Implanted:Qty: 1 on 11/01/2018 by Michael Simpson MD at [facility] Left: Eye STACIE LAB:SURG 05/13/2021 AU00T0.205 / [id number] / Insurance MEDICARE [place] PART A AND B [facility]
--- OUTSIDE RECORDS SUMMARY | 2025-05-06 12:18 | XMS_ITS | Clinical Summary ---
Author Organization Healthcare Address [address] [place] [address] Care Team Providers Care Dental Chair Assembler Name Role Phone Des Carreno MD Primary Care Provider +1- [phone] Family History Medical History Relation Name Comments [...] of Treatment Not on file Care Teams Dental Chair Assembler Relationship Specialty Start Date End Date Des Carreno MD [address] [place] [phone] PCP - General 12/25/20
--- NOTE | 2025-05-06 12:40 | XR_ITS ---
FINAL REPORT CLINICAL HISTORY: COPD exacerbation, cough COMPARISON: 11/06/2024 FINDINGS: PA and lateral views of the chest were obtained. Mild cardiomegaly is stable. Underlying emphysema is noted. A left lower lobe opacity could represent pneumonia. There is prominent kyphosis of the thoracic spine with compression deformity of a mid thoracic vertebral body. There is no pleural effusion or pneumothorax. IMPRESSION: Left lower lobe opacity concerning for pneumonia. Recommend follow-up. Cardiomegaly. Reviewed, Interpreted and Dictated by Kandace Mary MD Transcribed by Myra Can Authenticated and [facility]
[2025-05-06 14:03] LABS: Albumin Level 4.0 g/dl (3.5-5.0); Chloride 95 mmol/L (98-107); Sodium 135 mmol/L (136-145)
[2025-05-06 14:04] LABS: Potassium 4.9 mmoL/L (3.5-5.1)
[2025-05-06 14:06] LABS: Alanine Aminotransferase 10 U/L (12-78); Albumin/Globulin Ratio 1.3 (1.1-1.8); Alkaline Phosphatase 91 U/L (38-126); Anion Gap 15.9 mEq/L (5-15); Aspartate Amino Transferase 26 U/L (14-36); Bilirubin,Total 0.7 mg/dl (0.2-1.3); Blood Urea Nitrogen 19 mg/dl (7-17); Carbon Dioxide 29 mmol/L (22.0-30.0); Creatinine,Serum 0.70 mg/dl (0.52-1.04); Estimated Glomerular Filt Rate 80 ml/min (>60); GFR (African American) 97 ML/MIN (>60); Globulin 3.2 g/dL (1.3-3.2); Total Protein,Serum 7.2 g/dl (6.3-8.2)
[2025-05-06 14:07] LABS: Calcium 9.9 mg/dl (8.4-10.2); Glucose 111 mg/dl (74-100)
== END 2025-05-06 23:59 | disposition home or self-care (01) ==
LOC: LAB 12:16
PROVIDERS: PCP Nurse Practitioner; Visit Provider Nurse Practitioner
DX: I51.7 Cardiomegaly (principal); J44.1 Chronic obstructive pulmonary disease with (acute) exacerbation; R91.8 Other nonspecific abnormal finding of lung field
CPT/HCPCS: 36415; 71046; 80053; 87070; 87205

== ENCOUNTER 2025-05-12 14:33 | Outpatient (CLI) | payer MEDICARE, BC, SELFPAY ==
--- NOTE | 2025-05-12 14:38 | XR_ITS ---
FINAL REPORT TECHNIQUE: Chest PA & Lateral CLINICAL HISTORY: SOB COMPARISON: 05/06/2025 FINDINGS: 2 views of the chest were performed. On the lateral view, there is accentuation of the thoracic kyphosis. There is moderate cardiomegaly. There is a moderate hiatal hernia. There are chronic changes at the lung bases. There is no acute cardiopulmonary process. There are no pleural effusions. There is no pneumothorax. IMPRESSION: No acute cardiopulmonary process. Reviewed, Interpreted and Dictated by Jose Yuan MD Transcribed by Sheila Alcantar Authenticated and [facility]
--- OUTSIDE RECORDS SUMMARY | 2025-05-12 14:39 | XMS_ITS | Clinical Summary ---
Author Organization [facility] Address [address] [place] [address] Phone Care Team Providers Care Chief Engineer Drilling And Recovery Name Role Phone Unavailable Primary Care Provider Unavailabl e Allergies No known active allergies Medications VENTOLIN HFA 90 mcg/actuation Inhl HFA Aerosol Inhaler USE 2 PUFF(S) 4 TIMES A DAY AND NEEDED 5 08/15/2018 Active aspirin 81 mg Oral Tablet, Delayed Release (E.C.) Take 81 mg by mouth daily. 2 08/21/2018 Active fluticasone (FLONASE) 50 mcg/actuation Nasl [place], Suspension 1 [place] by Nasal route daily. 08/08/2018 Active moxifloxacin [...] INTRAOCULAR LENS; Surgeon: Michael Simpson MD; Location: [facility]; Service: Ophthalmology Medical devices from this surgery are in the Medical Devices section. CATARACT REMOVAL 11/01/2018 Left LEFT EYE CATARACT EXTRACTION WITH PHACOEMULSIFICATION AND INTRAOCULAR LENS; Surgeon: Michael Simpson MD; Location: [facility]; Service: Ophthalmology Medical devices from this surgery are in the Medical Devices section. Medical History Medical History Date Comments COPD (chronic obstructive pu lmonary disease) ([facility]) Shortness of breath DECKER (dyspnea on exertion) Exercise involving walking daily Bronchitis, chronic ([facility]) since very small Smoker 1/2 PPD since ag e 38 Hypertension [place] (myocardial infarction) ([facility]) 2011 light heart attack , they did [...] this topic Medical Devices Implanted Type Area Certified Fire Investigator Device Identifier Shelf Expiration Date Model / Serial / Lot Lens Intraocular Preloaded 19.5 Diopter - [id number] Implanted:Qty: 1 on 10/18/2018 by Michael Simpson MD at [facility] Right: Eye [facility]IE [facility]:SURG 05/13/2021 AU00T0.195 / [id number] / [id number] Lens Intraocular Preloaded 20.5 Diopter - [id number] Implanted:Qty: 1 on 11/01/2018 by Michael Simpson MD at [facility] Left: Eye STACIE LAB:SURG 05/13/2021 AU00T0.205 / [id number] / Insurance MEDICARE [place] PART A AND B [facility]
--- OUTSIDE RECORDS SUMMARY | 2025-05-12 14:39 | XMS_ITS | Clinical Summary ---
Author Organization Healthcare Address [address] [place] [address] Care Team Providers Care Voice Intercept Technician Name Role Phone Des Carreno MD Primary Care Provider +1- [phone] Family History Medical History Relation Name Comments [...] of Treatment Not on file Care Teams Voice Intercept Technician Relationship Specialty Start Date End Date Des Carreno MD [address] [place] [phone] PCP - General 12/25/20
--- OUTSIDE RECORDS SUMMARY | 2025-05-12 14:39 | XMS_ITS | Encounter Summary ---
Author Organization [place] [address] Care Team Providers Care Insurance Risk Analyst Name Role Phone Unavailable Primary Care Provider Unavailabl e Encounter Details Date Type Department Care Team (Late st Contact Info) Description 09/14/2010 Orders Only [facility] [address] [place] [address] Luiz Barbour MD [address] [place] [address] Social History Tobacco Use Types Packs/Day Years [...]
== END 2025-05-12 23:59 | disposition home or self-care (01) ==
LOC: RAD 14:34
PROVIDERS: PCP Family Medicine; Visit Provider Internal Medicine Pulmonary Disease
DX: R06.02 Shortness of breath (principal)
CPT/HCPCS: 71046

== ENCOUNTER 2025-07-22 10:53 | Outpatient (CLI) | payer MEDICARE, BC, SELFPAY ==
[2025-07-22 20:53] LABS: Hematocrit 25.8 % (37.0-47.0); Hemoglobin 7.7 g/dL (12.2-16.2); Immature Granulocytes % 0.3 %; Mean Corpuscular HGB Conc 29.8 g/dL (31.8-35.4); Mean Corpuscular Hemoglobin 23.9 pg (27.0-31.2); Mean Corpuscular Volume 80.1 fl (81-99); Nucleated Red Blood Cells % 0 %; Platelet Count 657 K/mm3 (142-424); Red Blood Count 3.22 M/mm3 (4.20-5.40); Red Cell Distribution Width-SD 47.9 fL; White Blood Count 7.6 K/mm3 (4.8-10.8)
[2025-07-22 21:28] LABS: Anion Gap 13.3 mEq/L (5-15); Blood Urea Nitrogen 19 mg/dl (7-17); Calcium 9.5 mg/dl (8.4-10.2); Carbon Dioxide 27 mmol/L (22.0-30.0); Chloride 102 mmol/L (98-107); Creatinine,Serum 1.00 mg/dl (0.52-1.04); Estimated Glomerular Filt Rate 53 ml/min (>60); GFR (African American) 64 ML/MIN (>60); Glucose 101 mg/dl (74-100); Potassium 4.3 mmoL/L (3.5-5.1); Sodium 138 mmol/L (136-145)
[2025-07-22 22:13] LABS: Thyroid Stimulating Hormone 1.27 uIU/mL (0.465-4.68)
== END 2025-07-22 23:59 ==
LOC: LAB.DROPOF 07-24 10:55
PROVIDERS: PCP Family Medicine; Visit Provider Family Medicine
DX: I10 Essential (primary) hypertension (principal); R79.89 Other specified abnormal findings of blood chemistry
CPT/HCPCS: 80048; 84443; 85025

== ENCOUNTER 2025-07-23 07:47 | Outpatient (CLI) | payer MEDICARE, BC, SELFPAY ==
[2025-07-23 21:35] LABS: Hematocrit 25.0 % (37.0-47.0); Hemoglobin 7.2 g/dL (12.2-16.2); Mean Corpuscular HGB Conc 28.8 g/dL (31.8-35.4); Mean Corpuscular Hemoglobin 23.1 pg (27.0-31.2); Mean Corpuscular Volume 80.1 fl (81-99); Platelet Count 646 K/mm3 (142-424); Red Blood Count 3.12 M/mm3 (4.20-5.40); White Blood Count 7.7 K/mm3 (4.8-10.8)
[2025-07-23 21:41] LABS: Reticulocyte % (Auto) 2.1 % (0.9-3.2)
[2025-07-23 21:59] LABS: Total Cells Counted 100
[2025-07-23 22:00] LABS: Acanthocytes 1+; Anisocytosis 1+; Macrocytosis 1+; Microcytosis 1+; Ovalocytes 1+; Poikilocytosis 1+; Target Cells 1+; Tear Drop Cells 1+
[2025-07-23 22:01] LABS: Basophilic Stippling 1+; Polychromasia 1+
[2025-07-23 22:02] LABS: Iron 20 ug/dL (37-170)
[2025-07-23 22:11] LABS: Total Iron Binding Capacity 426 ug/dL (265-497)
[2025-07-23 22:38] LABS: Ferritin 5.93 ng/ml (11.1-264)
[2025-07-23 23:10] LABS: Folate 10.00 ng/mL
[2025-07-23 23:38] LABS: Vitamin B12 487 pg/mL (239-931)
--- OUTSIDE RECORDS SUMMARY | 2025-07-25 08:12 | XMS_ITS | Encounter Summary ---
Author Organization [place] [address] Care Team Providers Care Linter Saw Sharpener Name Role Phone Unavailable Primary Care Provider Unavailabl e Encounter Details Date Type Department Care Team (Late st Contact Info) Description 09/14/2010 Orders Only [facility] [address] [place] [address] Luiz Barbour MD [address] [place] [address] Social History Tobacco Use Types Packs/Day Years [...]
--- OUTSIDE RECORDS SUMMARY | 2025-07-25 08:12 | XMS_ITS ---
Laboratory report Created on: July 15, 2025 ROSANA WALKER : 1945 Sex: Female Author Organization Unknown PROBLEMS Problems List Code Description RESULTS Laboratory Orders Date Order Code Test 2024-09-18 [id number] AEROBE ID + SUSC EPT Laboratory Results Date LOINC Test Value Unit Reference Range Interpre tation 2024-09-18 [id number] AEROBE ID + SUSCEPT FINAL A 2024-09-18 [id number] RESULT 1 BACNBA A
--- OUTSIDE RECORDS SUMMARY | 2025-07-25 08:12 | XMS_ITS | Clinical Summary ---
Author Organization Healthcare Address [address] [place] [address] Care Team Providers Care Sports Management Internship Name Role Phone Des Carreno MD Primary Care Provider +1- [phone] Family History Medical History Relation Name Comments [...] of Treatment Not on file Care Teams Sports Management Internship Relationship Specialty Start Date End Date Des Carreno MD [address] [place] [phone] PCP - General 12/25/20
--- OUTSIDE RECORDS SUMMARY | 2025-07-25 08:12 | XMS_ITS | Clinical Summary ---
Author Organization [facility] Address [address] [facility] [place] [address] Phone Care Team Providers Care Lock Fitter Name Role Phone Unavailable Primary Care Provider Unavailabl e Allergies No known active allergies Medications VENTOLIN HFA 90 mcg/actuation Inhl HFA Aerosol Inhaler USE 2 PUFF(S) 4 TIMES A DAY AND NEEDED 5 08/15/2018 Active aspirin 81 mg Oral Tablet, Delayed Release (E.C.) Take 81 mg by mouth daily. 2 08/21/2018 Active fluticasone (FLONASE) 50 mcg/actuation Nasl [place], Suspension 1 [place] by Nasal route daily. 08/08/2018 Active moxifloxacin [...] INTRAOCULAR LENS; Surgeon: Michael Simpson MD; Location: [facility]; Service: Ophthalmology Medical devices from this surgery are in the Medical Devices section. CATARACT REMOVAL 11/01/2018 Left LEFT EYE CATARACT EXTRACTION WITH PHACOEMULSIFICATION AND INTRAOCULAR LENS; Surgeon: Michael Simpson MD; Location: [facility]; Service: Ophthalmology Medical devices from this surgery are in the Medical Devices section. Medical History Medical History Date Comments COPD (chronic obstructive pu lmonary disease) ([facility]) Shortness of breath DECKER (dyspnea on exertion) Exercise involving walking daily Bronchitis, chronic ([facility]) since very small Smoker 1/2 PPD since ag e 38 Hypertension [place] (myocardial infarction) ([facility]) 2011 light heart attack , they did [...] Date Smoking Tobacco: Every Day Cigarettes 0.5 42.9 Started: 08/14/1982 Smokeless Tobacco: Never Alcohol Use [...] 1-d ose 75+ series) 2018 COVID-19 Vaccine (2024-2 6 season) 2025 Influenza Vaccine (#1) 2025 Hepatitis B Vaccine Aged Out No longe r eligible based on patient's age to complete this topic Meningococcal B Vaccine Aged Out No l onger eligible based on patient's age to complete this topic Medical Devices Implanted Type Area Power Plant Electrician Device Identifier Shelf Expiration Date Model / Serial / Lot Lens Intraocular Preloaded 19.5 Diopter - [id number] Implanted:Qty: 1 on 10/18/2018 by Michael Simpson MD at [facility] Right: Eye [facility]IE [facility]:SURG 05/13/2021 AU00T0.195 / [id number] / [id number] Lens Intraocular Preloaded 20.5 Diopter - [id number] Implanted:Qty: 1 on 11/01/2018 by Michael Simpson MD at [facility] Left: Eye STACIE LAB:SURG 05/13/2021 AU00T0.205 / [id number] / Insurance MEDICARE [place] PART A AND B [facility]
== END 2025-07-23 23:59 ==
LOC: LAB.DROPOF 07-25 07:48
PROVIDERS: PCP Family Medicine; Visit Provider Family Medicine
DX: D64.9 Anemia, unspecified (principal)
CPT/HCPCS: 82607; 82728; 82746; 83540; 83550; 85007; 85014; 85018; 85044; 85048; 85049

== ENCOUNTER 2025-07-24 13:58 | Outpatient (CLI) | payer MEDICARE, BC, SELFPAY ==
[2025-07-24] VITALS (10 sets, daily range): BP systolic 121–158; BP diastolic 58–84; PULSE 62–80; RESP 16–18; TEMP 36.6–36.9; O2SAT 94–96
[2025-07-24] MEDS: 0.9 % SODIUM CHLORIDE 250 ML 25 ML IV (15:22)
--- NOTE | 2025-07-24 15:40 | PC.NURSE ---
1530-Blood transfusion started at 100 ml/hr at this time.
--- NOTE | 2025-07-24 16:04 | PC.NURSE ---
1600-Increased rate to 150 ml/hr at this time.
== END 2025-07-24 18:34 | disposition home or self-care (01) ==
LOC: INF 14:00
PROVIDERS: PCP Family Medicine; Visit Provider Family Medicine
DX: D64.9 Anemia, unspecified (principal)
CPT/HCPCS: 36430; 86850; J7050; P9016

== ENCOUNTER 2025-07-29 14:20 | Outpatient (CLI) | payer MEDICARE, BC, SELFPAY ==
[2025-07-29 19:07] LABS: Hematocrit 32.5 % (37.0-47.0); Hemoglobin 9.5 g/dL (12.2-16.2); Immature Granulocytes % 0.3 %; Mean Corpuscular HGB Conc 29.2 g/dL (31.8-35.4); Mean Corpuscular Hemoglobin 23.8 pg (27.0-31.2); Mean Corpuscular Volume 81.5 fl (81-99); Nucleated Red Blood Cells % 0 %; Platelet Count 561 K/mm3 (142-424); Red Blood Count 3.99 M/mm3 (4.20-5.40); Red Cell Distribution Width-SD 50.3 fL; White Blood Count 7.7 K/mm3 (4.8-10.8)
--- OUTSIDE RECORDS SUMMARY | 2025-07-30 12:41 | XMS_ITS | Clinical Summary ---
Author Organization [facility] Address One [address] [facility] [place] [address] Phone Care Team Providers Care Packer Sausage And Wiener Name Role Phone Unavailable Primary Care Provider Unavailabl e Allergies No known active allergies Medications VENTOLIN HFA 90 mcg/actuation Inhl HFA Aerosol Inhaler USE 2 PUFF(S) 4 TIMES A DAY AND NEEDED 5 08/15/2018 Active aspirin 81 mg Oral Tablet, Delayed Release (E.C.) Take 81 mg by mouth daily. 2 08/21/2018 Active fluticasone (FLONASE) 50 mcg/actuation Nasl [place], Suspension 1 [place] by Nasal route daily. 08/08/2018 Active moxifloxacin [...] INTRAOCULAR LENS; Surgeon: Michael Simpson MD; Location: [facility]; Service: Ophthalmology Medical devices from this surgery are in the Medical Devices section. CATARACT REMOVAL 11/01/2018 Left LEFT EYE CATARACT EXTRACTION WITH PHACOEMULSIFICATION AND INTRAOCULAR LENS; Surgeon: Michael Simposn MD; Location: [facility]; Service: Ophthalmology Medical devices from this surgery are in the Medical Devices section. Medical History Medical History Date Comments COPD (chronic obstructive pu lmonary disease) ([facility]) Shortness of breath DECKER (dyspnea on exertion) Exercise involving walking daily Bronchitis, chronic ([facility]) since very small Smoker 1/2 PPD since ag e 38 Hypertension [place] (myocardial infarction) ([facility]) 2011 light heart attack , they [...] Date Smoking Tobacco: Every Day Cigarettes 0.5 41 Started: 08/14/1982 Smokeless Tobacco: Never Alcohol Use [...] Multiple Livin g Live Births 1 1 Date Outcome [place] Total Labor [...] this topic Medical Devices Implanted Type Area Solution Spec Device Identifier Shelf Expiration Date Model / Serial / Lot Lens Intraocular Preloaded 19.5 Diopter - [id number] Implanted:Qty: 1 on 10/18/2018 by Michael Simpson MD at [facility] Right: Eye [facility]IE [facility]:SURG 05/13/2021 AU00T0.195 / [id number] / [id number] Lens Intraocular Preloaded 20.5 Diopter - [id number] Implanted:Qty: 1 on 11/01/2018 by Michael Simpson MD at [facility] Left: Eye STACIE LAB:SURG 05/13/2021 AU00T0.205 / [id number] / Insurance MEDICARE [place] PART A AND B [facility]
--- OUTSIDE RECORDS SUMMARY | 2025-07-30 12:41 | XMS_ITS | Encounter Summary ---
Author Organization [place] [address] Care Team Providers Care Supervisor Drawing Name Role Phone Unavailable Primary Care Provider Unavailabl e Encounter Details Date Type Department Care Team (Late st Contact Info) Description 09/14/2010 Orders Only [facility] [address] [place] [address] Luiz Barbour MD [address] [place] [address] Social History Tobacco Use Types Packs/Day Years [...]
--- OUTSIDE RECORDS SUMMARY | 2025-07-30 12:41 | XMS_ITS | Clinical Summary ---
Author Organization Healthcare Address [address] [place] [address] Care Team Providers Care Straightener Hand Name Role Phone Des Carreno MD Primary Care Provider +1- [phone] Family History Medical History Relation Name Comments [...] of Treatment Not on file Care Teams Straightener Hand Relationship Specialty Start Date End Date Des Carreno MD [address] [place] [phone] PCP - General 12/25/20
== END 2025-07-29 23:59 | disposition home or self-care (01) ==
LOC: LAB.DROPOF 07-30 11:04
PROVIDERS: PCP Family Medicine; Visit Provider Family Medicine
DX: D64.9 Anemia, unspecified (principal)
CPT/HCPCS: 85025